=== PATIENT | male | born 1945 ===

== ENCOUNTER 2020-04-13 20:51 | Outpatient (REF) | payer MEDICARE, SELFPAY ==
[2020-04-15 17:33] LABS: SARS-CoV-2 RNA Undetected (Undetected); SARS-CoV-2 Specimen Source Nasal
== END 2020-04-13 21:11 ==
LOC: NCHCN 20:51
PROVIDERS: PCP Nurse Practitioner Family; Visit Provider Nurse Practitioner Family
DX: Z20.828 Contact with and (suspected) exposure to other viral communicable diseases (principal)
CPT/HCPCS: U0003

== ENCOUNTER 2021-12-29 01:07 | Outpatient (CLI) | payer MEDICARE, SELFPAY ==
--- NOTE | 2021-12-29 | DI.RAD_ITS ---
Exam(s) XR LUMBAR SPINE COMPLETE EXAM: XR LUMBAR SPINE COMPLETE CLINICAL HISTORY: LUMBAR SPONDYLOSIS WITH RADICULOPATHY,PRIOR FUSION TECHNIQUE: COMPARISON: No exams were available for comparison FINDINGS: Five views were obtained. There are mild degenerative changes of both hips and both SI joints. Ther e are Zepeda rods in place at L4-5 with a disc prosthesis also present at this level. Otherwise the intervertebral disc spaces appear fairly well maintained. No gross evidence of fracture or dislo cation. Moderate facet and endplate hypertrophic degenerative changes noted. IMPRESSION: Prior surgery as described, no evidence of acute process. RADIATION DOSE DELIVERED: Total DLP
--- NOTE | 2021-12-29 | DI.RAD_ITS ---
Exam(s) XR CERVICAL SPINE COMP 4-5V EXAM: XR CERVICAL SPINE COMP 4-5V CLINICAL HISTORY: C SPONDYLOSIS W/O RADICULOPATHY TECHNIQUE: COMPARISON: No exams were available for comparison FINDINGS: Six views were obtained. There is loss of disc height from C4-5 through C7-T1. There are very promi nent hypertrophic endplate changes throughout the lower cervical spine, particularly anteriorly. The re is minimal anterolisthesis C4 on C5. There is no evidence fracture or dislocation. No perched fa cet identified. Neural foramina are not ideally visualized, however there is some question narrowing of neural forami na on the right from C4-5 through C6-7 and on the left at C5-6 and C6-7. Additional evaluation with MRI could be considered if there is clinical suspicion neural foraminal impingement or central canal spinal stenosis/cord impingement. IMPRESSION: Severe degenerative changes as described above. RADIATION DOSE DELIVERED: Total DLP
== END 2021-12-29 01:27 ==
PROVIDERS: PCP Nurse Practitioner Family; Visit Provider Neuromusculoskeletal Medicine & OMM
DX: M47.26 Other spondylosis with radiculopathy, lumbar region (principal); Z98.1 Arthrodesis status; M47.22 Other spondylosis with radiculopathy, cervical region
CPT/HCPCS: 72050; 72110

== ENCOUNTER 2022-01-20 12:26 | Outpatient (CLI) | payer MEDICARE, SELFPAY ==
[2022-01-20 07:47] LABS: HCT 42.1 % (40.0-50.0); HGB 13.8 g/dL (13.5-17.5); MCH 33.5 pg (27.0-33.0); MCHC 32.8 % (32.0-36.0); MCV 102 fL (80-95); MPV 10.3 fL (8.0-11.0); Platelet Count 240 10^3/uL (130-400); RBC 4.12 10^6/uL (4.36-5.78); RDW 13.1 % (11.8-14.1); RDW-SD 49.3 fL; WBC 6.58 10^3/uL (4.4-10.8)
[2022-01-20 08:41] LABS: ALT 44 U/L (16-63); AST 36 U/L (15-37); Albumin 3.6 g/dL (3.4-5.0); Alkaline Phosphatase 60 U/L (46-116); Anion Gap 6.6 mmol/L (3-11); BUN 21 mg/dL (7-18); Bilirubin, Total 0.4 mg/dL (0.2-1.0); CO2 29.4 mmol/L (21.0-32.0); CREATININE 1.1 mg/dL (0.70-1.30); Chloride 104 mmol/L (98-107); Estimated GFR 69.57 (mL/min/1.73m2); Glucose 86 mg/dL (74-106); Potassium 4.6 mmol/L (3.5-5.1); Sodium 140 mmol/L (136-145); Total Protein 7.2 g/dL (6.4-8.2)
== END 2022-01-20 12:27 | disposition home or self-care (01) ==
LOC: LBO 12:27
PROVIDERS: PCP Family Medicine; Visit Provider Family Medicine
DX: J44.9 Chronic obstructive pulmonary disease, unspecified (principal); K21.9 Gastro-esophageal reflux disease without esophagitis
CPT/HCPCS: 36415; 80053; 85027

== ENCOUNTER 2022-02-23 00:50 | Outpatient (CLI) | payer MEDICARE, SELFPAY ==
--- NOTE | 2022-02-23 09:15 | DI.MRI_ITS ---
Exam(s) MR CERVICAL SPINE WO EXAM: MR CERVICAL SPINE WO CLINICAL HISTORY: C6 RADICULOPATHY, ? CENTRAL STENOSIS, LOSS ROM, +C6 SIGNS RT. TECHNIQUE: Multiplanar multisequence MRI was performed. COMPARISON: No exams were available for comparison FINDINGS: MR examination of the cervical spine was performed according to the usual protocol. There is a moderate mid cervical kyphosis with anterolisthesis of C4 on C5 which is estimated at abou t 4 millimeters. There is loss of disc height from C4-5 through the upper thoracic region. There ar e moderate hypertrophic endplate and facet changes throughout the mid to lower cervical spine. Images obtained through the posterior fossa are unremarkable. No significant findings at C2-3. At C3-4, there is mild bilateral neural foraminal narrowing. There is no disc herniation or central canal spinal stenosis. At C4-5, there is mild bilateral neural foraminal narrowing. There is no central canal spinal stenos is or disc herniation. At C5-6, there is a moderate disc bulge with focal prominence of the disc laterally suggesting a late ral disc herniation. There is narrowing of the left lateral recess and left neural foramen. No righ t neural foraminal narrowing. There is borderline central canal spinal stenosis. At C6-7, there is a moderate disc bulge. There is mild bilateral neural foraminal narrowing. No dis c herniation or central canal spinal stenosis. At C7-T1, there is mild bilateral neural foraminal narrowing with no significant disc herniation or c entral canal spinal stenosis. IMPRESSION: Multilevel degenerative changes as described above. Most prominent findings are at C5-6 where there is probable small lateral disc herniation causing narrowing of the left lateral recess and neural for amen. Multilevel neural foraminal narrowing also noted as described above. No gross spinal cord signal abn ormality or spinal cord lesion seen. DATA REPOSITORY:
--- NOTE | 2022-02-23 09:15 | DI.MRI_ITS ---
Exam(s) MR LUMBAR SPINE WO EXAM: MR LUMBAR SPINE WO CLINICAL HISTORY: SCIATICA, INCREASED WEAKNESS/SENSORY DEFICITS RT. TECHNIQUE: Multiplanar multisequence MRI was performed. COMPARISON: No exams were available for comparison FINDINGS: MR examination of the lumbosacral spine was performed according to the usual protocol. There are Danny rington rods in place at the L4-5 level. There is slight anterolisthesis of L4 on L5. There is mult i level loss of disc height, from L 2 3 through L4-5. There is hypertrophic degenerative change of t he facet joints throughout the lumbar region. The conus medullaris appears intact. No significant findings from T11-T12 through L1-2. No disc herniation, central canal spinal stenosis , or neural foraminal stenosis at these levels. At L2-3, there is a prominent disc bulge with apparent superimposed left broad-based disc herniation. There is narrowing of the left lateral recess. There is moderate central canal stenosis. There is left neural foraminal stenosis. At L3-4, there is moderate central canal spinal stenosis and mild bilateral neural foraminal stenosis . No focal disc herniation. At L4-5, there is moderate central canal spinal stenosis. There is bilateral neural foraminal stenos is. No focal disc herniation seen. At L5-S1, there is no evidence of disc herniation, central canal spinal stenosis, or neural foraminal stenosis.. IMPRESSION: Multilevel central canal spinal stenosis and neural foraminal stenosis as described above. Disc barbara iation at L2-3. Please see above discussion for findings at individual levels. DATA REPOSITORY:
== END 2022-02-23 01:10 ==
PROVIDERS: PCP Family Medicine; Visit Provider Neuromusculoskeletal Medicine & OMM
DX: M48.061 Spinal stenosis, lumbar region without neurogenic claudication (principal); M51.26 Other intervertebral disc displacement, lumbar region; M47.812 Spondylosis without myelopathy or radiculopathy, cervical region
CPT/HCPCS: 72141; 72148

== ENCOUNTER 2022-06-23 02:07 | Outpatient (CLI) | payer MEDICARE, SELFPAY ==
[2022-06-23] MEDS: Albuterol HFA 18 GM 200 PUFF INH IH (09:15)
[2022-06-23] MEDS: Inhaler, Assist Device 1 EACH MC (09:15)
--- NOTE | 2022-06-24 08:29 | W.PFT ---
Date of service: 06/23/22 Time of Service: 08:02 Pulmonary Function Test Result Indications: Asthma Interpretation Spirometry: There is moderate airflow limitation. No bronchodilator response. There is significant blunting of the inspiratory loop. Lung Volumes: Normal lung volumes Diffusion Capacity: Normal diffusion Airway Pressure: Normal airways resistance. Impression Moderate airflow obstruction with a normal diffusion. This could represent uncontrolled asthma or COPD (chronic bronchitis). Blunting of the inspiratory loop may represent vocal cord dysfunction in the correct clinical context. Clinical Correlation therefore is recommended.
== END 2022-06-23 02:08 | disposition home or self-care (01) ==
LOC: RT 02:08
PROVIDERS: PCP Family Medicine; Visit Provider Student in an Organized Health Care Education/Training Program
DX: R94.2 Abnormal results of pulmonary function studies (principal); J47.9 Bronchiectasis, uncomplicated; R05.3 Chronic cough
CPT/HCPCS: 94060; 94726; 94729

== ENCOUNTER 2022-07-12 01:09 | Outpatient (CLI) | payer MEDICARE, SELFPAY ==
--- NOTE | 2022-07-12 08:15 | DI.CT_ITS ---
Exam(s) CT CHEST WO EXAM: CT CHEST WO CLINICAL HISTORY: f/u 1.1cm nodule from 2019.R91.1. TECHNIQUE: Multi planar reconstructions were performed. CONTRAST MATERIAL: None COMPARISON: CT CT THORAX W/O CONTRAST from 04/30/[address] THORAX W/O CONTRAST from 01/29/[address] THORAX W/O CONTRAST from 01/29/2019 . from outside institution [facility] FINDINGS: CHEST: LUNGS: There is a E spiculated nodule in the posterior segment of the right upper lobe which measures approximately 1.2 x 0.7 cm. This, however, it does not appear to have increased in size from the Se ptember 2018 CT scan. There are other foci of increased markings in the lung bland which have increased from the prior hallie dy, with some infiltrate now evident in the lateral aspect of the right upper lobe and reticulonodula r findings throughout both lung bland again noted, not associated with pleural effusions. No focal findings in the trachea and mainstem bronchi. There is no obvious bronchiectasis. MEDIASTINUM: There is no obvious new hilar nor mediastinal adenopathy. Visualized thyroid unremarkabl e.No obvious axillary adenopathy CARDIAC: Heart size is normal. There is no pericardial effusion.Caliber of the thoracic aorta is wit hin normal limits. VISUALIZED UPPER ABDOMEN:No adrenal masses. No splenomegaly. OSSEOUS: No lytic osseous lesions. No fractures evident. IMPRESSION: 1. Relatively stable appearance of the PICC plated right upper lobe nodule which measures 12 x 7 mill imeters, not increased in size from the previous outside CT scan of January 2019. 2. Increasing other markings throughout both lung bland including areas of infiltrate, most prominen t in the lateral aspect of the right upper lobe but seen throughout both lung bland. No associated pleural effusions 3. No intrathoracic adenopathy evident. Close follow-up recommended. RADIATION DOSE DELIVERED: 548.11mGy.cm Total DLP DATA REPOSITORY: All CT scans at this facility are submitted to the National Radiology Data Registry (NRDR) Dose Index Registry (DIR) with the [employer] (ACR). RADIATION OPTIMIZATION: All CT scans at this facility use at least one of these dose optimization te chniques: automated exposure control; mA and/or kV adjustment per patient size (includes targeted exa ms where dose is matched to clinical indication); or iterative reconstruction.
--- NOTE | 2022-07-12 15:30 | DI.US_ITS ---
APPROVED REPORT EXAM: Comprehensive 2D, Doppler, and color-flow Echocardiogram Patient Location: Out-Patient [employer] Research Analyst: Bell Qureshi RDCS (AE) Indications: Assess pulmonary pressure, PHTN Other Information Study Quality: Adequate Conclusion Normal left ventricular wall thickness and chamber size. Estimated ejection fraction is 50 to 55%. There are no segmental wall motion abnormalities Normal right ventricular size and systolic function Both atria are normal in size Aortic valve is sclerotic and trileaflet without stenosis or regurgitation Estimated right ventricular systolic pressure is 29 mmHg Mildly dilated ascending aorta measuring 3.63 cm Wall motion Left Ventricle The left ventricle is normal size. Left ventricular systolic function is borderline. There is normal left ventricular wall thickness. There are no segmental wall motion abnormalities There is no ventric ular septal defect visualized. LVEF is 50-55%. Right Ventricle Right ventricle is grossly normal in size. The right ventricular systolic function is normal. The RVS P is 28.8 mmHg. Atria The left atrium size is normal. The right atrium size is normal. The interatrial septum is intact wit h no evidence for an atrial septal defect. Aortic Valve The Aortic valve is sclerotic. Aortic valve is trileaflet. There is no aortic valvular stenosis. No a ortic regurgitation is present. Mitral Valve The mitral valve is normal in structure. No evidence of mitral valve stenosis. Trace mitral regurgita tion. Tricuspid Valve The tricuspid valve is normal in structure. There is no tricuspid valve stenosis. Mild tricuspid reg urgitation. Pulmonic Valve The pulmonary valve is normal in structure. There is no pulmonic valvular stenosis. Trace pulmonic re gurgitation. Great Vessels The aortic root is normal in size. The ascending aorta is mildly dilated. IVC is normal in size and c ollapses >50% with inspiration. Pericardium There is no pericardial effusion. 2D Dimensions IVSD d PLAX 0.95 cm M: 0.6-1.2 LV Vol A2C d MOD 85.2 mL LVPW d PLAX 0.96 cm M: 0.6 - 1.2 LV Vol A4C d MOD 143.4 mL LVID d PLAX 4.57 cm M: 4.2 - 5.8 LA vol/ BSA A2C s A-L 30.3 mL/m2 LVDs 3.35 cm M: 2.5 - 4.0 LA vol/ BSA A4C s A-L 23.2 mL/m2 Ao Root d 3.65 cm M: 3.1 - 3.7 LA Vol/ BSA Biplane s A-L 26.6 mL/m2 RA Area A4C 14.77 cm2 LA Area A4C s MOD 17.02 cm2 RA Vol/ BSA A4C s A-L 20.7 mL/m2 LA Area A2C s MOD 19.51 cm2 Ao Asc Diam d 3.63 cm M: 2.6 - 3.4 LV EF A4C MOD 50.4 % LV EF Teichholz 51.1 % LV EF A2C MOD 50.3 % LVEF (Agosto's) 50.71 % M: 52 - 72 LV EF Biplane MOD 50.7 % LV Volume 85.75 mL M: 62 - 150 SV 57.36 mL LV Volume Index 44.20 mL/m2 M: 34 - 74 SV Index 29.60 mL/m2 LV Vol Biplane MOD 113.1 mL FS 25.90 % M-Mode TAPSE 2.49 cm (M/F) >1.7 LV Diastology MV E' medial 0.075 (>0.07 m/s) E/A Ratio 0.6 LV E/e MED 6.55 (<14) MV E Vmax 0.49 (0.4-1.3 m/s) MV E' lateral 0.084 (>0.1 m/s) MV A Vmax 0.85 (0.4-1.3 m/s) LV E/e LAT 5.80 (<14) MV E/A Ratio 0.58 MV E/E' medial 6.59 MV E/E' lateral 5.82 Aortic Valve LVOT Area 3.76 cm2 AoV Area Vmax 2.34 cm2 LVOT Vmax 1.00 m/s AoV Area/ BSA (Vmax) 1.21 cm2/m2 LVOT Mean Zach. 0.70 m/s ANTHONY Mean Zach. 2.37 cm2 LVOT Peak Grad 4.0 mmHg ANTHONY Mean Zach. Index 1.22 cm2/m2 LVOT Mean Grad 2.2 mmHg LVOT VTI 0.217 m LVOT Diam s 2.15 cm AoV Vmax 1.60 m/s Velocity Ratio 0.63 AoV Mean Zach. 1.10 m/s AoV Peak Grad 10.3 mmHg LVOT SV 81.45 mL AoV Mean Grad 5.5 mmHg AoV VTI 0.321 m AoV Area VTI 2.54 cm2 AoV Area/ BSA (VTI) 1.31 cm/m2 Mitral Valve MV DT 345 (160-240 msec) MV PHT 100 msec MV Area PHT 2.20 cm2 MV VTI 0.341 m MV Area VTI 2.39 (4.0-6.0 cm2) Pulmonary Valve PV Vmax 1.08 (0.5-1.5 m/s) RVOT Peak Gr. 2.13 mmHg PV Peak Grad 4.6 mmHg RVOT Mean Gr. 1.05 mmHg PV Mean Grad 2.3 mmHg RVOT VTI 0.148 m PV VTI 0.201 m RVOT Vmax 0.73 m/s Tricuspid Valve TR Peak Grad 25.8 mmHg TR Vmax 2.54 m/s RA Pressure 3.00 mmHg RVSP (TR) 28.8 mmHg
== END 2022-07-12 01:29 ==
LOC: DI 01:09
PROVIDERS: PCP Family Medicine; Visit Provider Student in an Organized Health Care Education/Training Program
DX: R91.1 Solitary pulmonary nodule (principal); I27.20 Pulmonary hypertension, unspecified
CPT/HCPCS: 71250; 93306

== ENCOUNTER 2023-01-26 02:18 | Outpatient (CLI) | payer MEDICARE, SELFPAY ==
[2023-01-26 12:31] LABS: HGB 13.6 g/dL (13.5-17.5); MCH 33.8 pg (27.0-33.0); MCHC 33.2 % (32.0-36.0); MCV 102 fL (80-95); MPV 10.6 fL (8.0-11.0); Platelet Count 228 10^3/uL (130-400); RBC 4.02 10^6/uL (4.36-5.78); RDW 13.2 % (11.8-14.1); RDW-SD 50.4 fL
[2023-01-26 12:49] LABS: ALT 38 U/L (16-63); AST 28 U/L (15-37); Albumin 3.5 g/dL (3.4-5.0); Alkaline Phosphatase 71 U/L (46-116); Anion Gap 5.6 mmol/L (3-11); BUN 17 mg/dL (7-18); Bilirubin, Total 0.3 mg/dL (0.2-1.0); CO2 29.4 mmol/L (21.0-32.0); Chloride 102 mmol/L (98-107); Estimated GFR 77.52 (mL/min/1.73m2); Glucose 104 mg/dL (74-106); Potassium 4.8 mmol/L (3.5-5.1); Sodium 137 mmol/L (136-145); Total Protein 7.1 g/dL (6.4-8.2)
== END 2023-01-26 02:19 | disposition home or self-care (01) ==
LOC: LBO 02:18
PROVIDERS: PCP Family Medicine; Visit Provider Family Medicine
DX: J44.9 Chronic obstructive pulmonary disease, unspecified (principal); K58.9 Irritable bowel syndrome, unspecified; F41.8 Other specified anxiety disorders
CPT/HCPCS: 36415; 80053; 85027

== ENCOUNTER → 2023-01-26 13:41 | Outpatient (CLI) | payer MEDICARE, SELFPAY ==
--- NOTE | 2023-01-26 13:16 | DI.RAD_ITS ---
Exam(s) XR SHOULDER LT COMPLETE 2+V EXAM: XR SHOULDER LT COMPLETE 2+V CLINICAL HISTORY: LEFT SHOULDER JOINT PAIN-M25.512. TECHNIQUE: 2D digital imaging was performed. Three views. COMPARISON: No exams were available for comparison FINDINGS: BONES: No acute fracture is present. No bony destructive lesion is seen. JOINTS: No dislocation present. Spurring at the AC joint and undersurface of the acromion. Mild spu rring from the glenoid. Mild glenohumeral joint space narrowing. SOFT TISSUE: Normal. IMPRESSION: [id number] degenerative changes of the AC joint and glenohumeral joint. DATA REPOSITORY: RADIATION DOSE DELIVERED:
== END ==
PROVIDERS: PCP Family Medicine; Visit Provider Family Medicine
DX: M25.511 Pain in right shoulder (principal)
CPT/HCPCS: 73030

== ENCOUNTER → 2023-06-01 18:51 | Outpatient (CLI) | payer MEDICARE, SELFPAY ==
--- NOTE | 2023-06-01 | DI.RAD_ITS ---
Exam(s) XR CERVICAL SPINE COMP 4-5V EXAM: XR CERVICAL SPINE COMP 4-5V CLINICAL HISTORY: M54.2 Cervicalgia. TECHNIQUE: 2D digital imaging was performed. COMPARISON: CR XR CERVICAL SPINE COMP 4-5V from 12/29/2021 FINDINGS: Five views. No evidence of acute fracture. The amount of degenerative anterolisthesis of C4 upon C5 is stable as is the bout of disc space narrowing at the C4-5 disc space. Disc spaces above this level are mainta ined. Severe advanced disc space narrowing at C5-6 and C6-7 and C7-T1 levels again noted. Some facet arthropathy is noted but no obvious of set malalignment. No cervical ribs. IMPRESSION: Multilevel advanced findings as described above but with minimal change from December 2021. DATA REPOSITORY: RADIATION DOSE DELIVERED:
== END ==
PROVIDERS: PCP Family Medicine; Visit Provider Physician Assistant Medical
DX: M50.021 Cervical disc disorder at C4-C5 level with myelopathy (principal); M50.122 Cervical disc disorder at C5-C6 level with radiculopathy; M50.123 Cervical disc disorder at C6-C7 level with radiculopathy
CPT/HCPCS: 72050

== ENCOUNTER 2024-01-08 18:24 | Outpatient (REF) | payer MEDICARE, SELFPAY ==
[2024-01-08 14:31] LABS: Abs Immature Grans 0.01 10^3/uL (0.0-0.06); Absolute Basophil Count 0.02 10^3/uL (0.0-0.2); Absolute Eosinophil Count 0.14 10^3/uL (0.0-0.7); Absolute Lymphocyte Count 0.71 10^3/uL (1.2-3.4); Absolute Monocyte Count 0.47 10^3/uL (0.1-0.8); Absolute Neutrophil Count 3.58 10^3/uL (1.2-6.7); Basophils % 0.4 %; Eosinophils % 2.8 %; HCT 39.2 % (40.0-50.0); HGB 13.1 g/dL (13.5-17.5); Immature Grans % 0.2 %; Lymphocytes % 14.4 %; MCH 34.3 pg (27.0-33.0); MCHC 33.4 % (32.0-36.0); MCV 103 fL (80-95); MPV 10.8 fL (8.0-11.0); Monocytes % 9.5 %; Neutrophils % 72.7 %; Platelet Count 233 10^3/uL (130-400); RBC 3.82 10^6/uL (4.36-5.78); RDW 13.4 % (11.8-14.1); RDW-SD 51.5 fL; WBC 4.93 10^3/uL (4.4-10.8)
[2024-01-08 15:32] LABS: ALT 37 U/L (16-63); AST 29 U/L (15-37); Albumin 3.4 g/dL (3.4-5.0); Alkaline Phosphatase 70 U/L (46-116); Anion Gap 6.7 mmol/L (3-11); BUN 28 mg/dL (7-18); Bilirubin, Total 0.34 mg/dL (0.2-1.0); CO2 29.3 mmol/L (21.0-32.0); CREATININE 0.9 mg/dL (0.70-1.30); Calcium 8.8 mg/dL (8.5-10.1); Chloride 103 mmol/L (98-107); Estimated GFR 87.42 (mL/min/1.73m2); Folate 19.8 ng/mL (8.6-20.0); Glucose 87 mg/dL (74-106); Potassium 4.9 mmol/L (3.5-5.1); Sodium 139 mmol/L (136-145); TSH (W/Ref FT4) 2.03 uIU/mL (0.36-3.74); Total Protein 6.3 g/dL (6.4-8.2); Vitamin B12 751 pg/mL (193-986)
--- OUTSIDE RECORDS SUMMARY | 2024-01-08 18:27 | XMS_ITS | Continuity of Care Document ---
Author Organization [facility] Address [address] [place] [address] Care Team Providers Care Express Manager Name Role Phone ANNE RANGEL APRN Primary Care Physician Encounter [facility]_SC FIN NBR [id number] Date(s): 07/12/23 - 07/12/[address] [id number]- Encounter Diagnosis Spondylosis without myelopathy or radiculopathy, cervical region(Final) - Other cervical disc degeneration, unspecified cervical region(Final) - Other abnormalities of gait and mobility(Final) - Unspecified abnormalities of gait and mobility(Final) - Paresthesia of skin(Final) - Spinal stenosis, lumbar region without neurogenic claudication(Final) - Other symptoms and signs involving the musculoskeletal system(Final) - Arthrodesis status(Final) - Discharge Disposition: Home or Self Care Attending Physician: OLIVIA Cain Admitting Physician: OLIVIA Cain Referring Physician: OLIVIA Cain Allergies, Adverse Reactions, Alerts Substance Reaction Severity Status penicillin Moderate Active Assessment and Plan Future Scheduled Tests Radiology* XR Spine Cervical 2 or 3 Views 07/05/23 * XR Spine Lumbosacral 4+ Views 07/05/23 Medications Anoro Ellipta 62.5 mcg-25 mcg/inh inhalation powder 60 EA, 0 Refill(s), INHALE 1 PUFF BY MOUTH DIRECTED ONCE A DAY, 0 Refill(s) Start Date: 07/05/23 Status: Ordered doxazosin 1 mg oral tablet 100 EA, 0 Refill(s), TAKE 1 TABLET BY MOUTH AT BEDTIME FOR 1 WEEK, INCREASE BY 1MG WEEKLY UP TO A MAX OF 8 MG, 0 Refill(s) Start Date: 07/05/23 Status: Ordered montelukast 10 mg oral tablet 90 EA, 0 Refill(s), TAKE ONE TABLET BY MOUTH EVERY EVENING, 0 Refill(s) Start Date: 07/05/23 Status: Ordered Problem List Condition Confirmation Course Effective Dates Status H ealth Status Informant Gait disturbance Confirmed Active Cervical spondylosis Confirmed Active Degeneration of cervical intervertebral disc Confirmed Active S/P lumbar fusion Confirmed Active Balance problem Confirmed Active Proximal leg weakness Confirmed Active Paresthesias Confirmed Active Lumbar spinal stenosis Confirmed Active Procedures Procedure Date Related Diagnosis Body Site Status Bilateral cataract surgery Completed Dislocated shoulder reduction Completed Fusion of lumbar spine Co mpleted Results Radiology Reports * Exam Date Time Procedure Performing Provider Status 07/12/23 1:52 PM MRI Spine Thoracic w /o Contrast DomainUser, Generated; Auth (Verified) Notes: (MRI Spine Thoracic w/o Contrast) Reason For Exam: Proximal right lower extremity weakness, gait disturbance MRI Spine Thoracic w/o Contrast EXAM DESCRIPTION: MRI Spine Thoracic w/o Contrast 07/12/2023 INDICATION: PROXIMAL RIGHT LOWER EXTREMITY WEAKNESS, GAIT DISTURBANCE TECHNIQUE: Multiplanar MRI examination of the thoracic spine utilizing T1, fat-suppressed T2 and fast STIR technique. COMPARISON: None FINDINGS: Lateral thoracic spine alignment is satisfactory. No focal disc protrusion or significant thoracic stenosis. Neural foramina appear without significant encroachment throughout the thoracic region No intrinsic signal abnormality within the thoracic spinal cord to suggest edema or myelomalacia with no evidence of syrinx. No suspicious regional marrow lesions with small Schmorl's nodes at several levels. No vertebral body compression deformity in the thoracic region Tiny T2 hyperintense lesion in the posterior aspect of the right hepatic lobe measuring a few mm, too small to characterize. Paraspinal soft tissues are otherwise unremarkable. IMPRESSION: No focal disc protrusion or significant thoracic stenosis Normal thoracic spinal cord. JOB #: [id number] Final Signed by: Luis Delgado MD Signed (Electronic Signature): 07/12/2023 3:12 pm * Exam Date Time Procedure Performing Provider Status 07/12/23 1:52 PM MRI Spine Cervical w /o Contrast DomainUser, Generated; Auth (Verified) Notes: (MRI Spine Cervical w/o Contrast) Reason For Exam: Cervical spondylosis and degeneration, balance problem and gait disturbance, paresthesias MRI Spine Cervical w/o Contrast EXAM DESCRIPTION: MRI Spine Cervical w/o Contrast 07/12/2023 INDICATION: CERVICAL SPONDYLOSIS AND DEGENERATION, BALANCE PROBLEM AND GAIT DISTURBANCE, PARESTHESIAS TECHNIQUE: Multiplanar MRI examination of the cervical spine utilizing T1, fat-suppressed T2 and fast STIR technique. COMPARISON: None FINDINGS: Reversal of cervical lordosis in the mid-lower cervical region with mild anterolisthesis at C4-5. Loss of intervertebral disc stature and signal intensity in the mid-lower cervical region on sagittal T2-weighted images consistent with desiccation and degeneration. C2-3: No focal disc protrusion, significant spinal stenosis or neural foraminal narrowing. C3-4: Mild broad-based central disc osteophyte complex. No significant stenosis or cord encroachment with AP spinal canal diameter of 9.3 mm. Bilateral uncovertebral spurring and facet hypertrophy resulting in significant bilateral neural foraminal narrowing C4-5: Broad-based central disc osteophyte complex. This encroaches on the ventral aspect of the cervical spinal cord without significant cord deformity. Posterior CSF space is maintained. AP spinal canal diameter is 8.3 mm. Bilateral uncovertebral spurring and facet hypertrophy resulting in bilateral neural foraminal narrowing, right greater than left. Right neural foraminal narrowing appears significant. C5-6: Broad-based central disc osteophyte complex. No cord encroachment or deformity with AP spinal canal diameter of 7.9 mm. Bilateral uncovertebral spurring with bilateral neural foraminal narrowing, left greater than right. Left neural foraminal narrowing appears significant. C6-7: Mild broad-based central disc osteophyte complex. No cord encroachment or deformity with AP spinal canal diameter of 9.6 mm. Left uncovertebral spurring with left neural foraminal narrowing. No significant right neural foraminal narrowing C7-T1: Mild broad-based central disc osteophyte complex. No significant stenosis or cord encroachment with AP spinal canal diameter of 9.9 mm. Bilateral uncovertebral spurring with bilateral neural foraminal narrowing. No intrinsic signal abnormality within the cervical spinal cord to suggest edema or myelomalacia with no evidence of syrinx. Visualized posterior fossa structures are unremarkable No suspicious regional marrow lesions with degenerative endplate changes at several levels. No vertebral body compression deformity in the cervical region Paraspinal soft tissues are unremarkable. IMPRESSION: Multilevel spondylotic changes. Relative spinal stenosis at several levels without significant stenosis or cord compression. Neural foraminal narrowing noted at multiple levels which appears significant at some levels. Please see above discussion for individual level description. JOB #: [id number] Final Signed by: Luis Delgado MD Signed (Electronic Signature): 07/12/2023 3:07 pm * Exam Date Time Procedure Performing Provider Status 07/12/23 1:52 PM MRI Spine Lumbar w/o Contrast DomainUs er, Generated; Auth (Verified) Notes: (MRI Spine Lumbar w/o Contrast) Reason For Exam: s/p lumbar fusion, lumbar spinal stenosis MRI Spine Lumbar w/o Contrast EXAM DESCRIPTION: MRI Spine Lumbar w/o Contrast 07/12/2023 INDICATION: S/P LUMBAR FUSION, LUMBAR SPINAL STENOSIS TECHNIQUE: Multiplanar MRI examination of the lumbar spine utilizing T1, fat-suppressed T2 and fast STIR technique. COMPARISON: None FINDINGS: Status post fusion at L4-5 with bilateral transpedicular screw and plate apparatus with interbody spacer apparatus. Grade 1-2 anterolisthesis at L4-5. Lumbar lordosis is otherwise satisfactory. Mild scoliosis which may be positional. L5-S1: Mild diffuse disc bulge with bilateral facet hypertrophy. No significant spinal stenosis with AP spinal canal diameter of 15 mm. Moderate bilateral neural foraminal narrowing L4-5: Diffuse disc bulge with bilateral facet hypertrophy. Relative spinal stenosis with AP spinal canal diameter of 7.5 mm. Significant bilateral lateral recess stenosis. Moderate bilateral neural foraminal narrowing L3-4: Diffuse disc bulge with bilateral facet and ligamentum flavum hypertrophy. Relative spinal stenosis with AP spinal canal diameter of 7.7 mm. Significant bilateral lateral recess stenosis with moderate left neural foraminal narrowing and mild right neural foraminal narrowing L2-3: Diffuse disc bulge with bilateral facet and ligamentum flavum hypertrophy. Relative spinal stenosis with AP spinal canal diameter of 7.2 mm. Bilateral lateral recess stenosis with moderate-severe bilateral neural foraminal narrowing L1-2: No focal disc protrusion, significant spinal stenosis or neural foraminal narrowing. T12-L1: No focal disc protrusion, significant spinal stenosis or neural foraminal narrowing. The conus is normal in morphology and signal intensity and terminates at the L1 level. No suspicious regional marrow lesions. Small Schmorl's nodes noted at some levels. No vertebral body compression deformity in the lumbar region Paraspinal soft tissues are unremarkable. IMPRESSION: Status post fusion at L4-5 as detailed above. Grade 1-2 anterolisthesis at L4-5. Spondylotic changes at several levels. Relative spinal stenosis, lateral recess stenosis and neural foraminal narrowing noted at several levels. Please see above discussion for individual level description. Normal conus. JOB #: [id number] Final Signed by: Luis Delgado MD Signed (Electronic Signature): 07/12/2023 2:57 pm Social History Social History Type Response Tobacco Never tobacco user T obacco Use:. Sex Patient Care team information Care Team Personnel Name: ANNE RANGEL APRN Position: No Access Member Role: Primary Care Physician Address: Address: [address] [place] [address]
--- OUTSIDE RECORDS SUMMARY | 2024-01-08 18:27 | XMS_ITS | Continuity of Care Document ---
Author Organization [facility] Ambulatory Clinics Address [address] [place] [address] Care Team Providers Care Application Packaging Specialist Name Role Phone ANNE RANGEL APRN Primary Care Physician Encounter [facility] NBR [id number] Date(s): 11/17/23 - 11/17/23 [facility] Ambulatory Clinics [address] [place], [place] [address]R[place] Discharge Disposition: Home Allergies, Adverse Reactions, Alerts Substance Reaction Severity Status penicillin Moderate Active Assessment and Plan Future Appointments Future Scheduled Tests Radiology* XR Spine Cervical [...] Degeneration of cervical intervertebral disc Confirmed Active Adjacent segment disease of lumbar spine with history of fusion procedure Confirmed Active S/P lumbar fusion Confirmed Active Balance problem Confirmed Active Proximal leg weakness Confirmed Active Paresthesias Confirmed Active Short-term memory loss Confirmed Active Lumbar spinal stenosis Confirmed Active Urinary urgency Confirmed Active Procedures Procedure Date Related Diagnosis Body Site Status Bilateral cataract surgery Completed Dislocated shoulder reduction Completed Fusion of lumbar spine Co mpleted Social History Social History Type Response Tobacco Never tobacco user T obacco Use:. Sex Patient Care team information Care Team Personnel Name: ANNE RANGEL APRN Position: No Access Member Role: Primary Care Physician Address: Address: [address] [place] [address] [place] [address]- Care Team Related Persons Name: ANTONIO SPEARS Address: Home [address] [place] [address]
--- OUTSIDE RECORDS SUMMARY | 2024-01-08 18:27 | XMS_ITS | Continuity of Care Document ---
Author Organization [facility] Ambulatory Clinics Address [address] [place] [address] Care Team Providers Care Internal Specialist Name Role Phone ANNE RANGEL APRN Primary Care Physician Encounter [facility] [facility] NBR [id number] Date(s): 07/06/23 - 07/06/23 [facility] Ambulatory Clinics [address] [place] [address]- Discharge Disposition: Home Allergies, Adverse Reactions, Alerts Substance Reaction Severity Status penicillin Moderate Active Assessment and Plan Future Appointments Future Scheduled Tests Radiology* MRI Spine Cervical w/o Contrast 07/12/23 * MRI Spine Lumbar w/o Contrast 07/12/23 * MRI Spine Thoracic w/o Contrast 07/12/23 * XR Spine Cervical 2 or 3 Views [...] Member Role: Primary Care Physician Address: Address: [address] [place] [address] Dr[address]
--- OUTSIDE RECORDS SUMMARY | 2024-01-08 18:27 | XMS_ITS | Continuity of Care Document ---
Author Organization [facility] Ambulatory Clinics Address [address] [place] [address] Care Team Providers Care Viscose Department Worker Name Role Phone ANNE RANGEL APRN Primary Care Physician ( [phone] Encounter [facility] FIN NBR [id number] Date(s): 07/06/23 - 07/06/23 [facility] Ambulatory Clinics [address] [place] [address] [place] Discharge Disposition: Home Allergies, Adverse Reactions, Alerts [...] Member Role: Primary Care Physician Address: Address: [address] [place] [address] Dr. W[address]
--- OUTSIDE RECORDS SUMMARY | 2024-01-08 18:27 | XMS_ITS | Encounter Summary ---
Author Organization [facility] [place] [address] Care Team Providers Care Air Launch Weapons Technician Name Role Phone Unavailable Primary Care Provider Unavailabl e Encounter Details Date Type Department Care Team (Latest Contact Info) Description 12/24/2021 11:05 AM EDT Laboratory Appointment Lab [address] [place] [id number] Prostate cancer screening Social History Tobacco Use Types Packs/Day Years Used Date Smoking Tobacco: Former Cigarettes Q uit: 1970 Smokeless Tobacco: Never Sex and Gender Information Value Date Recorded Sex Assigned at Not on file Gender Identity Not on file Sexual Orientation Not on file documented as of this encounter Plan of Treatment Not on file documented as of this encounter Procedures Procedure Name Priority Date/Time Associated Diagnosis Comments HC PROSTATE SPECIFIC ANTIGEN Routine 12/24/2021 11:14 AM EDT Prostate cancer screening documented in this encounter Results * PSA (Ultrasensitive), total and free (12/24/2021 11:14 AM EDT) Prostate Specific Antigen (Ultrasensitive) 0.92 0.00 - 4.00 ng/mL [facility] Comment: PLEASE NOTE: The above reference interval is intended for healthy males with an intact prostate. Values within this reference interval may indicate recurrence in men who have undergone radical prostatectomy. This result was generated using a Kristine Geo immunoassay. ??Results obtained from other methods or manufacturers cannot be used interchangeably with this method. Prostate Specific Antigen, Free 0.5 ng/mL [facility] Comment: This result was generated using a Kristine Geo immunoassay. ??Results obtained from other methods or manufacturers cannot be used interchangeably with this method. PSA % Free Not Calculated % [facility] Comment: The percent free PSA was not calculated for this sample as the total PSA value was not in the range of 4-10 ng/mL. ??The utility of the percent free PSA in the setting of total PSA values below 4 or above 10 ng/mL has not been evaluated. Probability of finding FABRIC CUTTER on needle biopsy by age in years: % fPSA ? 50-59yrs ? 60-69yrs ? >=70yrs <=10 ? 49.2 ? 57.5 ? 64.5 11-18 ?26.9 ? 33.9 ? 40.8 19-25 ?18.2 ? 23.9 ? 29.7 >25 ? 9.1 ? 12.2 ? 15.8 This result was generated using a Kristine Geo immunoassay. ??Results obtained from other methods or manufacturers cannot be used interchangeably with this method. Blood 12/24/2021 11:1 4 AM EDT 12/24/2021 11:24 AM EDT Narrative Resulting Agency Comment Spec In Lab Becky Faustin APRN CHEMISTRY ORDER WINSOME ROXANA [facility] [place] [address] documented in this encounter Visit Diagnoses Diagnosis Prostate cancer screening Special screening for malignant neoplasm of prostate documented in this encounter
--- OUTSIDE RECORDS SUMMARY | 2024-01-08 18:27 | XMS_ITS | Encounter Summary ---
Author Organization [facility] [address] Care Team Providers Care Supervisor Cook House Name Role Phone Unavailable Primary Care Provider Unavailabl e Encounter Details Date Type Department Care Team (Latest Contact Info) Description 03/01/2022 8:20 AM EDT TH Visit (TeleHealth) [place] [address] Becky Walker APRN [facility] [place] [address] PATIENT NOT SEEN Social History Tobacco Use Types Packs/Day Years Used Date Smoking Tobacco: Former Cigarettes Q uit: 1970 Smokeless Tobacco: Never Sex and Gender Information Value Date Recorded Sex Assigned at Not on file Gender Identity Not on file Sexual Orientation Not on file documented as of this encounter Progress Notes * Becky Walker APRN - 03/01/2022 8:20 AM EDT [facility] SECTION OF UROLOGY OUT PATIENT FOLLOW UP VISIT History of Present Illness: Dedrick Hairston is a 77 y.o. year old man, initially referred by Corazon Narayan APRN, who presents for follow up of LUTs/OAB and prostate cancer screening. Dedrick Hairston consented to conduct this clinical encounter by telephone. The patient acknowledges that the insurance may be billed for the care provided, similar to an in person appointment. The patient is currently in Prior to beginning the visit, I confirmed the patients name and date of . I obtained the patient's consent to receiving health care services at [facility] through telemedicine. We discussed the opportunities and limitations of delivering health care services through telemedicine. I told the patient that the telemedicine service is being delivered over a secure connection, except in the event of emergency conditions when such requirements may be waived. [facility] available for patient's review in [facility]'s patient portal, [facility]. He did not arrive to his video visit and I could not reach him by phone x 2. We will reschedule. Previous history: He has had these symptoms for the past few years and tried tamsulosin/terazosin with terrible side effects (worsened his symptoms). When I saw him in 12/2021,he was voiding every 2 hours, was leaking with urge and was drinking 2 cups of black tea (16 oz), kombucha and green tea (3 quarts per day), and no water. We discussed options and he opted for behavioral therapies. He had tried saw palmetto without benefit. 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 Smoked 50-60 years ago, smoked for a few years, socially only.2 drinks per day before dinner. 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 documented in this encounter Plan of Treatment Not on file documented as of this encounter Visit Diagnoses Diagnosis DH PATIENT NOT SEEN documented in this encounter
--- OUTSIDE RECORDS SUMMARY | 2024-01-08 18:27 | XMS_ITS | Encounter Summary ---
Author Organization [facility] [place] [address] Care Team Providers Care Mortgage Branch Manager Name Role Phone Unavailable Primary Care Provider Unavailabl e Reason for Referral * Consultation (Routine) - Denied Specialty Diagnoses / Procedures Referred By Contac t Referred To Contact [facility] Diagnoses Other cervical disc degeneration, unspecified cervical region [facility]ail [facility] PA [address] [place] [address] [facility] [place] [address] Referral ID Status Reason Start Date Expiration Date V isits Requested Visits Authorized [id number] Denied Consult, Test & Treat PCP Updated and/or Approved 06/07/2023 06/06/2024 1 0 Encounter Details Date Type Department Care Team (Latest Contact Info) Description 06/07/2023 Transcribe Orders eD Incoming Referrals [phone] [facility]ail [facility] PA [address] [place], [place] [address] Other cervical disc degeneration, unspecified cervical region Social History Tobacco Use Types Packs/Day Years Used Date Smoking Tobacco: Former Cigarettes Q uit: 1970 Smokeless Tobacco: Never Sex and Gender Information Value Date Recorded Sex Assigned at Not on file Gender Identity Not on file Sexual Orientation Not on file documented as of this encounter Plan of Treatment Scheduled Referrals Name Type Priority Associated Diagnoses Orde r Schedule Referral to Spine Center Outpatient Referral Routine Other cervical disc degeneration, unspecified cervical region Ordered: 06/07/2023 documented as of this encounter Visit Diagnoses Diagnosis Other cervical disc degeneration, unspecified cervical region documented in this encounter
--- OUTSIDE RECORDS SUMMARY | 2024-01-08 18:27 | XMS_ITS | Clinical Summary ---
Author Organization [facility] Address [facility] [place] [address] Care Team Providers Care Veterinary Manager Name Role Phone Unavailable Primary Care Provider Unavailabl e Allergies Active Allergy Reactions Criticality Noted Date Comments Penicillins Anaphylaxis,Hives High 12/24/2021 Secobarbital Sodium High 12/24/2021 Medications Medication Sig Dispensed Refills Start Date End Date Status montelukast (Singulair) 10 mg Tablet 12/11/2021 Active Symbicort 160-4.5 mcg/actuation HFA Aerosol Inhaler Inhale 2 puffs into the lungs 2 times daily. 11/11/2021 Active albuteroL 90 mcg/actuation HFA Aerosol Inhaler INHALE TWO PUFFS BY MOUTH EVERY 4 TO 6 HOURS NEEDED FOR FOR SHORTNESS OF BREATH 09/01/2021 Active Active Problems Problem Noted Date Diagnosed Date Prostate cancer screening 12/24/2021 OAB (overactive bladder) 12/24/2021 Social History Tobacco Use Types Packs/Day Years Used Date Smoking Tobacco: Former Cigarettes Q uit: 1970 Smokeless Tobacco: Never Sex and Gender Information Value Date Recorded Sex Assigned at Not on file Gender Identity Not on file Sexual Orientation Not on file Last Filed Vital Signs Vital Sign Reading Time Taken Comments Blood Pressure 138/90 12/24/2021 10:25 AM EDT Pulse 80 12/24/2021 10:25 AM EDT Temperature - - Respiratory Rate - - Oxygen Saturation - - Inhaled Oxygen Concentration - - Weight - - Height - - Body Mass Index - - Plan of Treatment Health Maintenance Due Date Last Done Comments Hepatitis C Screening 1963 Tdap adult 02/23/1964 Tetanus vaccine 02/23/1964 Zoster vaccine (1 of 2) 1995 Advance Directive 02/23/2000 Pneumoccocal Vaccine: 65+ (1 of 1 - PCV) 2010 Covid-19 Vaccine (2022-24 season) 2023 Influenza (Flu) vaccine (1 o f 1 - Influenza standard series) 01/14/2024
--- OUTSIDE RECORDS SUMMARY | 2024-01-08 18:27 | XMS_ITS | Continuity of Care Document ---
Author Organization [facility] Address [address] [place] [address] Care Team Providers Care Motorcoach Driver Name Role Phone ANNE RANGEL APRN Primary Care Physician Encounter [facility] FIN NBR [id number] Date(s): 08/31/23 - 08/31/[address] [address]- [place] Discharge Disposition: Home or Self Care Attending Physician: Eladio Mckeon DO ([place]) Admitting Physician: Eladio Mckeon DO ([place]) Allergies, Adverse Reactions, Alerts Substance Reaction Severity Status penicillin Moderate Active Assessment and Plan Future Appointments Future Scheduled Tests Radiology* MRI Brain w/o Contrast 08/31/23 * XR Spine Cervical 2 or 3 [...] Exam Date Time Procedure Performing Provider Status 08/31/23 3:16 PM XR Spine Lumbosacral 4+ Views Brea Arshad; Maribel (Verified) Notes: (XR Spine Lumbosacral 4+ Views) Reason For Exam: r/o lumbar instability XR Spine Lumbosacral 4+ Views EXAM DESCRIPTION: XR Spine Lumbosacral 4+ Views 08/31/2023 INDICATION: R/O LUMBAR INSTABILITY TECHNIQUE: AP and lateral views of the lumbar spine including lateral views with voluntary flexion/extension, 4 views. COMPARISON: None IMPRESSION: Status post fusion at L4-5 with bilateral transpedicular screw and plate apparatus with interbody spacer apparatus. Hardware appears in satisfactory position No acute fracture. Grade 1-2 anterolisthesis at L4-5. Mild retrolisthesis at L1-2. Mild levoscoliosis. Spondylotic changes in the mid-upper lumbar region with intervertebral disc space narrowing and mild endplate osteophyte formation SI joints appear symmetric Views with voluntary flexion/extension demonstrate no evidence of significant instability. JOB #: [id number] Final Signed by: Luis Delgado MD Signed (Electronic Signature): 08/31/2023 3:24 pm Social History Social History Type Response Tobacco Never tobacco user T obacco Use:. Sex Patient Care team information Care Team Personnel Name: ANNE RANGEL APRN Position: No Access Member Role: Primary Care Physician Address: Address: [address] [place] [address] Care Team Related Persons Name: ANTONIO SPEARS Address: Home [address]
--- OUTSIDE RECORDS SUMMARY | 2024-01-08 18:27 | XMS_ITS | Continuity of Care Document ---
Author Organization [facility] Ambulatory Clinics Address [address] [place] [address] Care Team Providers Care Nuclear Plant Technical Advisor Name Role Phone ANNE RANGEL APRN Primary Care Physician Encounter [facility] NBR [id number] Date(s): 08/31/23 - 08/31/23 [facility] Ambulatory Clinics [address] [place], [place] [address] Encounter Diagnosis Degeneration of cervical intervertebral disc(Discharge Diagnosis) - 08/31/23 Adjacent segment disease of lumbar spine with history of fusion procedure (Discharge Diagnosis) - 08/31/23 Short-term memory loss(Discharge Diagnosis) - 08/31/23 Other intervertebral disc degeneration, lumbar region(Discharge Diagnosis) - 08/31/23 Status post lumbar spinal fusion(Discharge Diagnosis) - 08/31/23 Normal pressure hydrocephalus(Discharge Diagnosis) - 08/31/23 Balance problem(Discharge Diagnosis) - 08/31/23 Gait disturbance(Discharge Diagnosis) - 08/31/23 Urinary urgency(Discharge Diagnosis) - 08/31/23 Cervical spondylosis(Discharge Diagnosis) - 08/31/23 Discharge Disposition: Home or Self Care Attending Physician: Eladio Mckeon DO ([place]) Allergies, Adverse Reactions, Alerts Substance Reaction Severity Status penicillin Moderate Active Assessment and Plan Extracted from: Title:Neurosurgery office Visit Note Author:Eladio Mckeon DO ([place]) Date:08/31/23 1.??Balance problem??R26.89 ??78-year-old male with??history of??L4-5 posterior instrumented fusion??and adjacent level disease.?? His chief complaints are??low back pain,??gait imbalance,??urinary urgency, and short-term memory loss.?? Pain is axial and there is no radicular component.?? His cervical??MRI also shows??cervical??spondylosis with??reversal of normal cervical lordosis,??spondylolisthesis at C4-5,??and cervical stenosis from C4-C6.?? He is not clearly myelopathic however,??with a dearth of??upper extremity??symptoms.?? At this time, I recommended??lumbar x-ray with flexion-extension views, an MRI of the brain??to rule out normal pressure hydrocephalus??and??follow-up with neurology.?? I will call him to discuss next steps after MRI is completed. ??Patient is agreeable. 2.??Gait disturbance??R26.9 3.??Urinary urgency??R39.15 4.??Cervical spondylosis??M47.812 5.??Degeneration of cervical intervertebral disc??M50.30 6.??Short-term memory loss??R41.3 7.??Adjacent segment disease of lumbar spine with history of fusion procedure??M51.36 Orders: MRI Brain w/o Contrast, 08/31/23, Routine, Reason: NPH symptoms, No, No, Transport Mode: Ambulatory, Normal pressure hydrocephalus, ABN Status: Not Required Future Appointments Future Scheduled Tests Radiology* MRI [...] Completed Fusion of lumbar spine Co mpleted Vital Signs Most recent to oldest [Reference Range]: 1 Temperature Temporal Artery [36-38 Deg C ] 35.9 Deg C *LOW* (08/31/23 2:34 PM) Peripheral Pulse Rate [60-100 bpm] 69 bp m (08/31/23 2:34 PM) Respiratory Rate [12-24 br/min] 16 br/mi n (08/31/23 2:34 PM) Blood Pressure [90-140/60-90 mmHg] 155/8 8mmHg *HI* (08/31/23 2:34 PM) Mean Arterial Pressure, Cuff [65-140 mmH g] 110 mmHg (08/31/23 2:34 PM) Weight 74.9 kg (08/31/23 2:34 PM) Weight Measured (lbs) 165.126 lb (08/31/23 2:34 PM) Weight Dosing 74.900 kg (08/31/23 2:34 PM) Social History Social History Type Response Tobacco Never tobacco user T obacco Use:. Sex Physician Outpatient Note * Eladio Mckeon DO (Yoli): PERFORM Event Display: Office Clinic Note Physician Authored Date: [id number] FISH[place] :1945 Age:78 years Sex:Male Visit Date:08/31/2023 Primary Care Physician: ANNE RANGEL APRN Chief Complaint new patient History of Present Illness This is a 78-year-old male who was last seen on??07/05/2023??for neck and low back pain.?Today hereports that his low back pain is??significantly??worse than his??neck pain.?He denies??radicular component to??either pain.?? Regenerex treatment has helped this low back pain for??approximately 6 months. ??He describes??shuffling gait??that began around 2 years ago,??concomitant with??decline in short-term memory.?? 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 However, he is??noted 30 pounds of weight loss over the past??15 to 16 years.?? He does eat and sleep well.?? He drinks about 1 vodka a day.?? Patient has??appointment with neurology in December. Review of Systems As per HPI Physical Exam Vitals & Measurements T:??35.9?C ??(Temporal Artery)?? HR:??69??(Peripheral)?? RR:??16?? BP:??155/88?? SpO2:??98%?? WT:??74.9??kg?? NAD?? Awake, alert Face symmetric Speech fluent and logical Motor 5 out of 5 bilateral upper and lower extremities all muscle groups No drift No dysmetria on??[id number] No Kady's or clonus Wide base??gait,??nonshuffling Unable to tandem Assessment/Plan 1.??Balance problem??R26.89 ??78-year-old male with??history of??L4-5 posterior instrumented fusion??and adjacent level disease.?? His chief complaints are??low back pain,??gait imbalance,??urinary urgency, and short-term memory loss.?? Pain is axial and there is no radicular component.?? His cervical??MRI also shows??cervical ??spondylosis with??reversal of normal cervical lordosis,??spondylolisthesis at C4-5,??and cervicalstenosis from C4-C6.?? He is not clearly myelopathic however,??with a dearth of??upper extremity??symptoms.?? At this time, I recommended??lumbar x-ray with flexion-extension views, an MRI of the brain??to rule out normal pressure hydrocephalus??and??follow-up with neurology.?? I will call him to discuss next steps after MRI is completed. ??Patient is agreeable. 2.??Gait disturbance??R26.9 3.??Urinary urgency??R39.15 4.??Cervical spondylosis??M47.812 5.??Degeneration of cervical intervertebral disc??M50.30 6.??Short-term memory loss??R41.3 7.??Adjacent segment disease of lumbar spine with history of fusion procedure??M51.36 Orders: MRI Brain w/o Contrast, 08/31/23, Routine, Reason: NPH symptoms, No, No, Transport Mode: Ambulatory, Normal pressure hydrocephalus, ABN Status: Not Required Future Orders MRI Brain w/o Contrast, 08/31/23, Routine, Reason: NPH symptoms, No, No, Transport Mode: Ambulatory, Normal pressure hydrocephalus, ABN Status: Not Required Problem List/Past Medical History Ongoing Adjacent segment disease of lumbar spine with history of fusion procedure Balance problem Cervical spondylosis Degeneration of cervical intervertebral disc Gait disturbance Lumbar spinal stenosis Paresthesias Proximal leg weakness S/P lumbar fusion Short-term memory loss Urinary urgency Historical No qualifying data Procedure/Surgical History ???Bilateral cataract surgery???Dislocated shoulder reduction???Fusion of lumbar spine Medications Anoro Ellipta 62.5 mcg-25 mcg/inh inhalation powder doxazosin 1 mg oral tablet montelukast 10 mg oral tablet Allergies penicillin Social History Alcohol Current, Liquor, Daily Electronic Cigarette/Vaping Electronic Cigarette Use: Never. Substance Use Current, Marijuana, 3-5 times per week Tobacco Never tobacco user Tobacco Use:. Family History Cancer: Mother. Diagnostic Results Diagnostic Study Interpretation: MRI cervical spine??without contrast??07/12/2023: Straightening of normal cervical lordosis. ??Thereis spondylolisthesis??at C4-5.?? Moderate to severe stenosis at C4-5??and C5-6. ??There is also left foraminal stenosis at C5-6.?? There is shallow disc bulges at C6-7 and C7-T1 without??significant??impingement of the??spinal cord or nerve roots. ?? MRI lumbar spine without contrast 07/04/2023:??Postoperative changes related to L4-5 instrumentedfusion.?? There is spondylolisthesis at this level??with persistent??canal stenosis.?? There is adjacent level disease at L3-4??and L2- 3??with significant canal and foraminal stenosis at both levels. Attending Attestation Spent 45 minutes with patient in obtaining appropriate history and exam, counseling the patient, ordering MRI.?Time was not spent in performing separately reimbursable service. Electronically Signed on 08/31/23 04:11 PM Eladio Mckeon DO ([place]) Patient Care team information Care Team Personnel Name: ANNE RANGEL APRN Position: No Access Member Role: Primary Care Physician Address: Address: [address] [place] [address] [place] [address]- Care Team Related Persons Name: ANTONIO SPEARS Address: Home [address] [place] [address]
--- OUTSIDE RECORDS SUMMARY | 2024-01-08 18:27 | XMS_ITS | Continuity of Care Document ---
Author Organization [facility] Ambulatory [facility] Address [address] [place] [address] Care Team Providers Care Food Checker Name Role Phone ANNE RANGEL APRN Primary Care Physician Encounter [facility] [id number] Date(s): 07/06/23 - 07/06/23 [facility] [address] [place] [address]- Discharge Disposition: Home Allergies, Adverse Reactions, Alerts [...] Member Role: Primary Care Physician Address: Address: [address] [place] [address] Dr. WINTERS [address]
--- OUTSIDE RECORDS SUMMARY | 2024-01-08 18:27 | XMS_ITS | Continuity of Care Document ---
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 Encounter Diagnosis Cervical spondylosis(Discharge Diagnosis) - 07/05/23 Degeneration of cervical intervertebral disc(Discharge Diagnosis) - 07/05/23 Balance problem(Discharge Diagnosis) - 07/05/23 Gait disturbance(Discharge Diagnosis) - 07/05/23 Paresthesias(Discharge Diagnosis) - 07/05/23 Proximal leg weakness(Discharge Diagnosis) - 07/05/23 S/P lumbar fusion(Discharge Diagnosis) - 07/05/23 Lumbar spinal stenosis(Discharge Diagnosis) - 07/05/23 Discharge Disposition: Home or Self Care Attending Physician: ANNE RANGEL APRN Referring Physician: ANNE RANGEL APRN Allergies, Adverse Reactions, Alerts Substance Reaction Severity Status penicillin Moderate Active Assessment and Plan Extracted from: Title:Office Visit Note Author:Becki Milton APRN- JOEY Date:07/05/23 1.??Cervical spondylosis??M4 7.812 The patient has been struggling with chronic neck pain??for years but??more recently this increase significantly.?? While the pain in his neck has improved some but is still present and he now has significantly decreased range of motion particular with rotation to the right. ??He also has frequent??tingling of??the fingers on both of his hands.?? The patient also feels that his balance and gait are getting much worse which is concerning for cervical spinal stenosis.?He has extensive conservative treatment including trial of multiple medications, physical therapy and chiropractic treatments regularly with??again some improvement in his??pain but persistence in??the rest of his symptoms. ??The patient has known significant cervical disc degeneration and spondylosis and his MRI of the cervical spine from 2021 also shows multilevel foraminal narrowing and??thecal sac indentation but no significant central stenosis. ??I am concerned that this may have progressed.?? We will obtain an MRI of the cervical spine without contrast and I am also recommending obtaining flexion-extension cervical spine x-rays to ensure there is no abnormal movement of the cervical spine. ??The patient is in agreement. Ordered: MRI Spine Cervical w/o Contrast, 07/05/23, Routine, Reason: Cervical spondylosis and degeneration, balance problem and gait disturbance, paresthesias, No, No, Transport Mode: Ambulatory, Cervical spondylosis Degeneration of cervical intervertebral disc Balance problem Gait dist... XR Spine Cervical 2 or 3 Views, 07/05/23, Routine, Reason: cervical spondylosis, FLEX/EXT ONLY, Transport Mode: Ambulatory, Cervical spondylosis Degeneration of cervical intervertebral disc, ABN Status: Not Required ?? 2.??Degeneration of cervical intervertebral disc??M50.30 Ordered: MRI Spine Cervical w/o Contrast, 07/05/23, Routine, Reason: Cervical spondylosis and degeneration, balance problem and gait disturbance, paresthesias, No, No, Transport Mode: Ambulatory, Cervical spondylosis Degeneration of cervical intervertebral disc Balance problem Gait dist... XR Spine Cervical 2 or 3 Views, 07/05/23, Routine, Reason: cervical spondylosis, FLEX/EXT ONLY, Transport Mode: Ambulatory, Cervical spondylosis Degeneration of cervical intervertebral disc, ABN Status: Not Required ?? 3.??Balance problem??R26.89 Ordered: MRI Spine Cervical w/o Contrast, 07/05/23, Routine, Reason: Cervical spondylosis and degeneration, balance problem and gait disturbance, paresthesias, No, No, Transport Mode: Ambulatory, Cervical spondylosis Degeneration of cervical intervertebral disc Balance problem Gait dist... MRI Spine Lumbar w/o Contrast, 07/05/23, Routine, Reason: s/p lumbar fusion, lumbar spinal stenosis, No, No, Transport Mode: Ambulatory, Balance problem Gait disturbance Paresthesias S/P lumbar fusion Lumbar spinal stenosis, ABN Status: Not Required MRI Spine Thoracic w/o Contrast, 07/05/23, Routine, Reason: Proximal right lower extremity weakness, gait disturbance, No, No, Transport Mode: Ambulatory, Proximal leg weakness Gait disturbance Balance problem, ABN Status: Not Required ?? 4.??Gait disturbance??R26.9 Patient's balance has progressively been getting worse over the last year or 2??but he also feels that he has a shuffling gait.?? On his physical examination today he does have an abnormal gait that is wide-based and seems to be quite stiff in his right leg.?? In addition to the gait and balance changes,??he also is having difficulty with his speech where he has trouble getting his words out at times which was noticeable during his visit today. ??He also feels that his memory is worsening.?? In addition to??evaluating??his spine I am recommending referral to neurology as a spine problem could not explain the speech problem or memory issues. ??He is in agreement. Ordered: MRI Spine Cervical w/o Contrast, 07/05/23, Routine, Reason: Cervical spondylosis and degeneration, balance problem and gait disturbance, paresthesias, No, No, Transport Mode: Ambulatory, Cervical spondylosis Degeneration of cervical intervertebral disc Balance problem Gait dist... MRI Spine Lumbar w/o Contrast, 07/05/23, Routine, Reason: s/p lumbar fusion, lumbar spinal stenosis, No, No, Transport Mode: Ambulatory, Balance problem Gait disturbance Paresthesias S/P lumbar fusion Lumbar spinal stenosis, ABN Status: Not Required MRI Spine Thoracic w/o Contrast, 07/05/23, Routine, Reason: Proximal right lower extremity weakness, gait disturbance, No, No, Transport Mode: Ambulatory, Proximal leg weakness Gait disturbance Balance problem, ABN Status: Not Required ?? 5.??Paresthesias??R20.2 Ordered: MRI Spine Lumbar w/o Contrast, 07/05/23, Routine, Reason: s/p lumbar fusion, lumbar spinal stenosis, No, No, Transport Mode: Ambulatory, Balance problem Gait disturbance Paresthesias S/P lumbar fusion Lumbar spinal stenosis, ABN Status: Not Required ?? 6.??Proximal leg weakness??R29.898 The patient reports that he has trouble with lifting his right leg. ??He feels weak??and has trouble with??stairs.?? He has mild weakness of the left hamstring as well.?? Given his gait changes, balance issues as well as this proximal weakness as well as hamstring weakness I am recommending MRI of the thoracic spine as well. Ordered: MRI Spine Thoracic w/o Contrast, 07/05/23, Routine, Reason: Proximal right lower extremity weakness, gait disturbance, No, No, Transport Mode: Ambulatory, Proximal leg weakness Gait disturbance Balance problem, ABN Status: Not Required ?? 7.??S/P lumbar fusion??Z98.1 The patient struggles with chronic low back pain.?? He had a lumbar fusion at L4-5 when he lived in [place] in 2016 which helped for a couple of years but it is progressively worsened.?? He has done extensive conservative treatment including trial of multiple medications including topical medications, therapy, chiropractic treatments and??Regentex platelet injections with??no lasting relief. ??His imaging from 2021 does reveal adjacent segment degeneration at the L3-4 level as well as stenosis at the L3-4 and L2-3 levels.?? Given that it has been a couple of years since he has had any lumbar spine imaging I am recommending obtaining MRI of the lumbar spine with contrast as well as AP and lateral and flexion-extension lumbar spine x-rays. Ordered: MRI Spine Lumbar w/o Contrast, 07/05/23, Routine, Reason: s/p lumbar fusion, lumbar spinal stenosis, No, No, Transport Mode: Ambulatory, Balance problem Gait disturbance Paresthesias S/P lumbar fusion Lumbar spinal stenosis, ABN Status: Not Required XR Spine Lumbosacral 4+ Views, 07/05/23, Routine, Reason: s/p lumbar fusion, AP/Lat and FLEX/EXT, Transport Mode: Ambulatory, S/P lumbar fusion Lumbar spinal stenosis, ABN Status: Not Required ?? 8.??Lumbar spinal stenosis??M48.061 Ordered: MRI Spine Lumbar w/o Contrast, 07/05/23, Routine, Reason: s/p lumbar fusion, lumbar spinal stenosis, No, No, Transport Mode: Ambulatory, Balance problem Gait disturbance Paresthesias S/P lumbar fusion Lumbar spinal stenosis, ABN Status: Not Required XR Spine Lumbosacral 4+ Views, 07/05/23, Routine, Reason: s/p lumbar fusion, AP/Lat and FLEX/EXT, Transport Mode: Ambulatory, S/P lumbar fusion Lumbar spinal stenosis, ABN Status: Not Required ?? Plan: MRI cervical, thoracic and lumbar spines without contrast. AP and lateral and flexion-extension lumbar spine x-rays. Flexion and extension cervical spine x-rays. Referral to neurology. ? Future Scheduled Tests Radiology* MRI Spine Cervical w/o Contrast 07/05/23 * MRI Spine Lumbar w/o Contrast 07/05/23 * MRI Spine Thoracic w/o Contrast 07/05/23 * XR Spine Cervical 2 or 3 [...] recent to oldest [Reference Range]: 1 Temperature Oral [35.8-37.3 Deg C] 36.7 Deg C (07/05/23 2:13 PM) Peripheral Pulse Rate [60-100 bpm] 82 bp m (07/05/23 2:13 PM) Respiratory Rate [12-24 br/min] 20 br/mi n (07/05/23 2:13 PM) Blood Pressure [90-140/60-90 mmHg] 118/8 2mmHg (07/05/23 2:13 PM) Mean Arterial Pressure, Cuff [65-140 mmH g] 94 mmHg (07/05/23 2:13 PM) Weight 73.57 kg (07/05/23 2:13 PM) Weight Measured (lbs) 162.194 lb (07/05/23 2:13 PM) Weight Dosing 73.570 kg (07/05/23 2:13 PM) [place] Body Weight Calculated 77.6 kg (07/05/23 2:13 PM) Height 182.88 cm (07/05/23 2:13 PM) Height/Length Measured (inches) 72 inch (07/05/23 2:13 PM) BSA Measured 1.93 m2 (07/05/23 2:13 PM) Body Mass Index 22 kg/m2 (07/05/23 2:13 PM) Social History Social History Type Response Tobacco Never tobacco user T obacco Use:. Sex Physician Outpatient Note * Becki Milton APRN-JOEY: PERFORM Event Display: Office Clinic Note Physician Authored Date: [id number] RICKY FISHER :1945 Age:78 years Sex:Male Visit Date:07/05/2023 Primary Care Physician: ANNE RANGEL APRN Chief Complaint cervical and lower back pain History of Present Illness The patient presents for evaluation of his neck and low back pain. ??The patient reports that??nearly 40 years ago he had a C3 transverse??process fracture but that healed??and did not require any surgical correction.?? He has struggled with chronic neck pain but more recently over the last month or so??this increased. ??He denies any known injury.?? He states that his neck pain has subsided somebut is still present but he continues to have significantly decreased range of motion. ??He states that the range of motion is decreased bilaterally but more pronounced with turning his head to the right.?? He is also found that his gait is more shuffling and his balance is getting worse over the past few years. ??He started noticing the shuffling in 2021. ??He has fallen due to balance problems.?? He also has tingling affecting the fingertips of all of his fingers bilaterally.?? He states thatthis has improved slightly after he started using a CPAP back in the fall but is still present.?? 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 It has affected his activity and he can no longer ski due to his balance.?? He also feels that he has become weak throughout his whole body including the upper and lower extremities.?? The patient denies any swallowing issues or dizziness. ??He denies any new headaches.?? He does report that his memory seems to be getting much worse.?? The patient reports that he drinks 2??drinks of vodka daily and he has done this for quite some time. ??Prior to starting drinking the vodka he used to drink about a half of wine daily with his previous who is . ??He is concerned that some of his issues may be due to the alcohol use. The patient also reports that he struggles with chronic low back pain. ??He states that he had a L4-5 fusion in 2016 in [place] and that did help for a couple of years and the pain started comingback. ??The pain is not severe it is still quite bothersome and limiting. ??He was having some painaffecting his right lateral thigh but this has improved.?? He is not experiencing any paresthesias of lower extremities.?? He states that he received 2 Regentex platelet injections last year for his low back pain and that did help for??a few months but??his pain is back at his baseline.?? His low back does not bother much while he was sitting but when he goes to get up at times the pain can be severe and??dropped him to his knees.?? He sees a physical therapist for manual therapy monthly as well as a chiropractor monthly and he finds that the ultrasound used by the chiropractor is very helpful. ??He applies topical castor oil??as well as THC??to his low back and that is helpful as well. ??He also utilizes oral THC, acetaminophen as needed which is somewhat helpful. ?? Review of Systems Relevant ROS discussed in HPI Physical Exam Vitals & Measurements T:??36.7?C ??(Oral)?? HR:??82??(Peripheral)?? RR:??20?? BP:??118/82?? SpO2:??95%?? HT:??182.88??cm?? WT:??73.57??kg?? BMI:??22?? BSA:??1.93?? GENERAL:?General Appearance:?pleasant, age appropriate in no apparent distress.?? MUSCULOSKELETAL:?Musculoskeletal:??Cervical spine ROM limited with bilateral rotation but much more pronounced with rotation to the right. ??No tenderness??over cervical spine. No??paraspinal muscle tenderness. NEUROLOGICAL:?Neurological:?Negative Lhermitte's.?Motor:?Strength 5/5 with bilateral deltoid abduction, bicep flexion, triceps flexion, wrist extension, hand abduction, hip flexion, knee extension, ankle dorsiflexion and plantar flexion.?Strength 4+/5 left hamstring flexion, 5/5 right hamstring flexion. ?Reflexes:?2+ and symmetric in biceps??and knees bilaterally. ??1+ bilateral tricepand brachioradialis jerks. ??Unable to elicit bilateral ankle jerks. Negative Kady's bilaterally.? Tone: Normal ? Gait: Wide-based,??somewhat slow and unsteady.?? Patient seems to be favoring his right leg which appears to be quite stiff.?? The patient is able to stand on his??left leg for 2 to 3 seconds without any assistance but is not able to stand on his right leg for any length of time. Assessment/Plan 1.??Cervical spondylosis??M47.812 The patient has been struggling with chronic neck pain??for years but??more recently this increase significantly.?? While the pain in his neck has improved some but is still present and he now has significantly decreased range of motion particular with rotation to the right. ??He also has frequent??tingling of??the fingers on both of his hands.?? The patient also feels that his balance and gait are getting much worse which is concerning for cervical spinal stenosis.?He has extensive conservative treatment including trial of multiple medications, physical therapy and chiropractic treatmentsregularly with??again some improvement in his??pain but persistence in??the rest of his symptoms. ??The patient has known significant cervical disc degeneration and spondylosis and his MRI of the cervical spine from 2021 also shows multilevel foraminal narrowing and??thecal sac indentation but no significant central stenosis. ??I am concerned that this may have progressed.?? We will obtain an MRIof the cervical spine without contrast and I am also recommending obtaining flexion-extension cervical spine x-rays to ensure there is no abnormal movement of the cervical spine. ??The patient is in agreement. Ordered: MRI Spine Cervical w/o Contrast, 07/05/23, Routine, Reason: Cervical spondylosis and degeneration, balance problem and gait disturbance, paresthesias, No, No, Transport Mode: Ambulatory, Cervical spondylosis Degeneration of cervical intervertebral disc Balance problem Gait dist... XR Spine Cervical 2 or 3 Views, 07/05/23, Routine, Reason: cervical spondylosis, FLEX/EXT ONLY, Transport Mode: Ambulatory, Cervical spondylosis Degeneration of cervical intervertebral disc, ABN Status: Not Required ?? 2.??Degeneration of cervical intervertebral disc??M50.30 Ordered: MRI Spine Cervical w/o Contrast, 07/05/23, Routine, Reason: Cervical spondylosis and degeneration, balance problem and gait disturbance, paresthesias, No, No, Transport Mode: Ambulatory, Cervical spondylosis Degeneration of cervical intervertebral disc Balance problem Gait dist... XR Spine Cervical 2 or 3 Views, 07/05/23, Routine, Reason: cervical spondylosis, FLEX/EXT ONLY, Transport Mode: Ambulatory, Cervical spondylosis Degeneration of cervical intervertebral disc, ABN Status: Not Required ?? 3.??Balance problem??R26.89 Ordered: MRI Spine Cervical w/o Contrast, 07/05/23, Routine, Reason: Cervical spondylosis and degeneration, balance problem and gait disturbance, paresthesias, No, No, Transport Mode: Ambulatory, Cervical spondylosis Degeneration of cervical intervertebral disc Balance problem Gait dist... MRI Spine Lumbar w/o Contrast, 07/05/23, Routine, Reason: s/p lumbar fusion, lumbar spinal stenosis, No, No, Transport Mode: Ambulatory, Balance problem Gait disturbance Paresthesias S/P lumbarfusion Lumbar spinal stenosis, ABN Status: Not Required MRI Spine Thoracic w/o Contrast, 07/05/23, Routine, Reason: Proximal right lower extremity weakness, gait disturbance, No, No, Transport Mode: Ambulatory, Proximal leg weakness Gait disturbance Balance problem, ABN Status: Not Required ?? 4.??Gait disturbance??R26.9 Patient's balance has progressively been getting worse over the last year or 2??but he also feels that he has a shuffling gait.?? On his physical examination today he does have an abnormal gait that is wide-based and seems to be quite stiff in his right leg.?? In addition to the gait and balance changes,??he also is having difficulty with his speech where he has trouble getting his words out at times which was noticeable during his visit today. ??He also feels that his memory is worsening.?? Inaddition to??evaluating??his spine I am recommending referral to neurology as a spine problem couldnot explain the speech problem or memory issues. ??He is in agreement. Ordered: MRI Spine Cervical w/o Contrast, 07/05/23, Routine, Reason: Cervical spondylosis and degeneration, balance problem and gait disturbance, paresthesias, No, No, Transport Mode: Ambulatory, Cervical spondylosis Degeneration of cervical intervertebral disc Balance problem Gait dist... MRI Spine Lumbar w/o Contrast, 07/05/23, Routine, Reason: s/p lumbar fusion, lumbar spinal stenosis, No, No, Transport Mode: Ambulatory, Balance problem Gait disturbance Paresthesias S/P lumbarfusion Lumbar spinal stenosis, ABN Status: Not Required MRI Spine Thoracic w/o Contrast, 07/05/23, Routine, Reason: Proximal right lower extremity weakness, gait disturbance, No, No, Transport Mode: Ambulatory, Proximal leg weakness Gait disturbance Balance problem, ABN Status: Not Required ?? 5.??Paresthesias??R20.2 Ordered: MRI Spine Lumbar w/o Contrast, 07/05/23, Routine, Reason: s/p lumbar fusion, lumbar spinal stenosis, No, No, Transport Mode: Ambulatory, Balance problem Gait disturbance Paresthesias S/P lumbarfusion Lumbar spinal stenosis, ABN Status: Not Required ?? 6.??Proximal leg weakness??R29.898 The patient reports that he has trouble with lifting his right leg. ??He feels weak??and has trouble with??stairs.?? He has mild weakness of the left hamstring as well.?? Given his gait changes, balance issues as well as this proximal weakness as well as hamstring weakness I am recommending MRI of the thoracic spine as well. Ordered: MRI Spine Thoracic w/o Contrast, 07/05/23, Routine, Reason: Proximal right lower extremity weakness, gait disturbance, No, No, Transport Mode: Ambulatory, Proximal leg weakness Gait disturbance Balance problem, ABN Status: Not Required ?? 7.??S/P lumbar fusion??Z98.1 The patient struggles with chronic low back pain.?? He had a lumbar fusion at L4-5 when he lived [facility] in 2015 which helped for a couple of years but it is progressively worsened.?? He has done extensive conservative treatment including trial of multiple medications including topical medications, therapy, chiropractic treatments and??Regentex platelet injections with??no lasting relief. ??His imaging from 2021 does reveal adjacent segment degeneration at the L3-4 level as well as stenosis at the L3-4 and L2-3 levels.?? Given that it has been a couple of years since he has had any lumbar spine imaging I am recommending obtaining MRI of the lumbar spine with contrast as well as AP and lateral and flexion-extension lumbar spine x-rays. Ordered: MRI Spine Lumbar w/o Contrast, 07/05/23, Routine, Reason: s/p lumbar fusion, lumbar spinal stenosis, No, No, Transport Mode: Ambulatory, Balance problem Gait disturbance Paresthesias S/P lumbarfusion Lumbar spinal stenosis, ABN Status: Not Required XR Spine Lumbosacral 4+ Views, 07/05/23, Routine, Reason: s/p lumbar fusion, AP/Lat and FLEX/EXT, Transport Mode: Ambulatory, S/P lumbar fusion Lumbar spinal stenosis, ABN Status: Not Required ?? 8.??Lumbar spinal stenosis??M48.061 Ordered: MRI Spine Lumbar w/o Contrast, 07/05/23, Routine, Reason: s/p lumbar fusion, lumbar spinal stenosis, No, No, Transport Mode: Ambulatory, Balance problem Gait disturbance Paresthesias S/P lumbarfusion Lumbar spinal stenosis, ABN Status: Not Required XR Spine Lumbosacral 4+ Views, 07/05/23, Routine, Reason: s/p lumbar fusion, AP/Lat and FLEX/EXT, Transport Mode: Ambulatory, S/P lumbar fusion Lumbar spinal stenosis, ABN Status: Not Required ?? Plan: MRI cervical, thoracic and lumbar spines without contrast. AP and lateral and flexion-extension lumbar spine x-rays. Flexion and extension cervical spine x-rays. Referral to neurology. Future Orders MRI Spine Cervical w/o Contrast, 07/05/23, Routine, Reason: Cervical spondylosis and degeneration, balance problem and gait disturbance, paresthesias, No, No, Transport Mode: Ambulatory, Cervical spondylosis Degeneration of cervical intervertebral disc Balance problem Gait dist... MRI Spine Lumbar w/o Contrast, 07/05/23, Routine, Reason: s/p lumbar fusion, lumbar spinal stenosis, No, No, Transport Mode: Ambulatory, Balance problem Gait disturbance Paresthesias S/P lumbarfusion Lumbar spinal stenosis, ABN Status: Not Required MRI Spine Thoracic w/o Contrast, 07/05/23, Routine, Reason: Proximal right lower extremity weakness, gait disturbance, No, No, Transport Mode: Ambulatory, Proximal leg weakness Gait disturbance Balance problem, ABN Status: Not Required XR Spine Cervical 2 or 3 Views, 07/05/23, Routine, Reason: cervical spondylosis, FLEX/EXT ONLY, Transport Mode: Ambulatory, Cervical spondylosis Degeneration of cervical intervertebral disc, ABN Status: Not Required XR Spine Lumbosacral 4+ Views, 07/05/23, Routine, Reason: s/p lumbar fusion, AP/Lat and FLEX/EXT, Transport Mode: Ambulatory, S/P lumbar fusion Lumbar spinal stenosis, ABN Status: Not Required Referral Orders Referral Management, Medical Service: Neurology, Reason: Gait disturbance, progressive speech difficulty, worsening memory, Start: 07/05/23, Instructions: [facility] Dr. [place] Problem List/Past Medical History Ongoing Balance problem Cervical spondylosis Degeneration of cervical intervertebral disc Gait disturbance Lumbar spinal stenosis Paresthesias Proximal leg weakness S/P lumbar fusion Historical No qualifying data Procedure/Surgical History ???Bilateral [...] Cancer: Mother. Diagnostic Results Diagnostic Study Interpretation: X-ray of the cervical spine was reviewed with the patient. There are multilevel significant degenerative and arthritic changes in the cervical spine.?? There is an anterolisthesis of C4 over C5.?? There is significant intervertebral disc height loss from C4-T1.?? This is most pronounced at C5-6 where it appears to be [id number] or there may be potential autofusion at this level.?? There are multilevel facet changes and anterior osteophytes. I also reviewed the patient's MRI of the cervical spine from??February 2022 and??there is similar findings with advanced degenerative and spondylotic changes as well as the listhesis at C4-5.?? There was multilevel foraminal narrowing bilaterally that was severe??at certain levels but there is no sig nificant central stenosis. MRI of the??lumbar spine from 2021 was also reviewed. ??Status post??interbody??fusion with particular screw placement L4-5.?? There was evidence of adjacent segment degeneration at the L3-4 level with??stenosis at this level as well as??at the L2-3 level. ??There are multilevel degenerative and spondylotic changes in the lumbar spine. Electronically Signed on 07/05/23 03:43 PM Becki Milton APRN-JOEY Patient Care team information Care Team Personnel Name: ANNE RANGEL APRN Position: No Access Member Role: Primary Care Physician Address: Address: [address] [place] [address] [address] [place], [place] [id number]
--- OUTSIDE RECORDS SUMMARY | 2024-01-08 18:27 | XMS_ITS | Encounter Summary ---
[place] [address] Care Team Providers Care Clinical Laboratory Scientist Name Role Phone Unavailable Primary Care Provider Unavailabl e Reason for Visit * Consultation (Routine) - Closed Specialty Diagnoses / Procedures Referred By Contac t Referred To Contact Urology Diagnoses PERSISTENT NOCTURIA FOR SEVERAL YEARS Corazon Narayan, 2 YEAR [employer] [address] [place] [address] [facility] [place] [address] Referral ID Status Reason Start Date Expiration Date V isits Requested Visits Authorized [id number] Closed Consult, Test & Treat Connection Center PCP Updated and/or Approved 02/10/2021 02/10/2022 6 6 Encounter Details Date Type Department Care Team (Late st Contact Info) Description 12/24/2021 10:00 AM EDT Office [place] [address] Becky Walker APRN [facility] [place] [address] Prostate cancer screening; OAB (overactive bladder) Social History Tobacco Use Types Packs/Day Years Used Date Smoking Tobacco: Former Cigarettes Q uit: 1970 Smokeless Tobacco: Never Sex and Gender Information Value Date Recorded Sex Assigned at Not on file Gender Identity Not on file Sexual Orientation Not on file documented as of this encounter Last Filed Vital Signs Vital Sign Reading Time Taken Comments Blood Pressure 138/90 12/24/2021 10:25 AM EDT Pulse 80 12/24/2021 10:25 AM EDT Temperature - - Respiratory Rate - - Oxygen Saturation - - Inhaled Oxygen Concentration - - Weight - - Height - - Body Mass Index - - documented in this encounter Progress Notes * Becky Walker APRN - 12/24/2021 10:00 AM EDT [facility] SECTION OF UROLOGY NEW PATIENT CONSULT Patient Primary Care Provider: Corazon Narayan APRN Referring Provider: Corazon Narayan APRN History of Present Illness: Dedrick Hairston is a 76 y.o. year old man, seen at the request of KELLIE Gonzalez who presents for evaluation and assessment of nocturia. He has had these symptoms for the past few years and tried tamsulosin/terazosin with terrible side effects. Notes from Galilea Narayan APRN have been received and reviewed. Dedrick presents today with nocturia. He voids every 2 hours, urgently. He feels he empties ok. He states flomax aggravated his symptoms, not sure about the terazosin, but it did not work. He knows he had side effects tho. Stream ok, voids small amounts, no intermittent. He does leak urine with urge, when full on the wayto the bathroom, not with BLADE. No pads No hematuria. No history of UTIs. Bowels are normal-daily soft He drinks very little coffee, drinks 2 cups of black tea (16 oz), kombucha and green tea (3 quarts per day), water: no plain water. He feels rested generally, he has gotten used to getting up every few hours He does not limit fluids 3 hours prior to bed. He tried saw palmetto without benefit. 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 He would like screening today. GENERAL HEALTH: excellent ROS: Constitutional: Denies fever, chills, weight loss/gain Eyes: Denies acute vision change ENT: Denies sinus congestion, recent URI Pulmonary: Denies asthma, cough, recent pneumonia, SOB Cardiovascular: Denies chest pain, arrhythmia, NV GI:Denies GI bleed, GERD, constipation or diarrhea : As per HPI Endocrine: Denies diabetes, thyroid disease Integumentary: Denies skin cancer, rash Heme/lymph: Denies easy bleeding/bruising Neurologic: Denies CVA/TIA Psychiatric: Denies depression or anxiety Musculoskeletal: Denies back pain, weakness Allergy/immunology: Denies immune disorder Anesthesia complications: Denies PMHx: Dizziness Giddiness Lyme disease Surgeries: eye surgery, right shoulder surgery Social history: with female partner. Smoked 50-60 years ago, smoked for a few years, socially only.2 drinks per day before dinner. 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 Healthy appearance. Color normal. No significant skin lesions. Head: atraumatic and normocephalic Abdomen: benign without masses, rebound, guarding, or tenderness. No hepatosplenogmegaly. No CVA tenderness. Genitalia:Scrotum - Color and texture normal; no masses. Testicles and epididymides without tenderness or masses. Penis -circumcised with orthotopic meatus; nomasses or surface lesion. Rectal: The anus and perineum are normal. Rectal sphincter tone is normal. There is not any levatorani tenderness, and there are no rectal masses. The prostate is smooth, without masses 40 grams Musculoskeletal: grossly normal, no gait issues Neurologic: grossly normal Skin: grossly normal PVR with scanner by my review: 0-18 cc U/A by my review: neg PSA history by my review: none on file IMPRESSION: Prostate cancer screening LUTs/nocturia, OAB-he empties well PLAN/RECOMMENDATIONS: We discussed the contributors to LUTS/OAB. He understands. We discussed behavioral therapies per the handout given to him today. He will pursue these. He willmoderate irritants to 16 oz per day, hydrate with water and limit fluids 3 hours prior to bed Call with gross hematuria at any time We discussed medication options including: alpha blockers, 5 alpha reductase inhibitors and PDE5 inhibitors. We also discussed anticholinergics/beta agonists. He will defer. He will try to do this behaviorally. We did not discuss surgical therapies We discussed the pros/cons of prostate cancer screening. He would like to be screened. He is very healthy so we will proceed I answered all questions to the patients apparent satisfaction. Becky Faustin APRN [facility] Section of Urology [phone] documented in this encounter Plan of Treatment Not on file documented as of this encounter Results * PSA (Ultrasensitive), total and free (12/24/2021 11:14 AM EDT) Prostate Specific Antigen (Ultrasensitive) 0.92 0.00 - 4.00 ng/mL [facility] Comment: PLEASE NOTE: The above reference interval is intended for healthy males with an intact prostate. Values within this reference interval may indicate recurrence in men who have undergone radical prostatectomy. This result was generated using a IIDas immunoassay. ??Results obtained from other methods or manufacturers cannot be used interchangeably with this method. Prostate Specific Antigen, Free 0.5 ng/mL [facility] Comment: This result was generated using a Kristine Geo immunoassay. ??Results obtained from other methods or manufacturers cannot be used interchangeably with this method. PSA % Free Not Calculated % [facility] Comment: The percent free PSA was not calculated for this sample as the total PSA value was not in the range of 4-10 ng/mL. ??The utility of the percent free PSA in the setting of total PSA values below 4 or above 10 ng/mL has not been evaluated. Probability of finding ICE HANDLER on needle biopsy by age in years: [...] Lab Becky Faustin APRN CHEMISTRY ORDER WINSOME [facility] [place] [address] documented in this encounter Visit Diagnoses Diagnosis Prostate cancer screening Special screening for malignant neoplasm of prostate OAB (overactive bladder) Hypertonicity of bladder documented in this encounter
--- OUTSIDE RECORDS SUMMARY | 2024-01-08 18:27 | XMS_ITS | Continuity of Care Document ---
Author Organization [facility] Address [address] [place] [address] Care Team Providers Care Pipe Fitter Marine Name Role Phone ANNE RANGEL APRN Primary Care Physician Encounter LTTL_MI FIN NBR [id number] Date(s): 09/14/23 - 09/14/[address] [address]- [place] Discharge Disposition: Home or Self Care Attending Physician: Eladio Mckeon DO ([place]) Admitting Physician: Eladio Mckeon DO ([place]) Referring Physician: Eladio Mckeon DO ([place]) Allergies, Adverse [...] Exam Date Time Procedure Performing Provider Status 09/14/23 2:36 PM MRI Brain w/o Contrast Mary Brown nn; Auth (Verified) Notes: (MRI Brain w/o Contrast) Reason For Exam: NPH symptoms MRI Brain w/o Contrast EXAM DESCRIPTION: MRI Brain w/o Contrast 09/14/2023 INDICATION: NPH SYMPTOMS TECHNIQUE: Technique: Multiplanar MRI examination of the head including FLAIR and diffusion series. COMPARISON: None FINDINGS: No intracranial mass effect or midline shift. Prominence of the ventricular system and cortical sulci consistent with generalized cerebral atrophy. Diffusion weighted images demonstrate no focal area of acute or recent infarct. No hydrocephalus, extra-axial fluid collection or blood breakdown products Multiple nonspecific foci of periventricular and subcortical white matter T2 signal prolongation bilaterally likely reflecting chronic microangiopathy. Cerebellar tonsil position is normal. The pituitary gland demonstrates normal morphology and signal intensity. No significant temporal horn asymmetry. Visualized vascular flow voids and cranial nerves appear within normal limits. The visualized paranasal sinuses are grossly clear. IMPRESSION: No intracranial mass effect or midline shift. Generalized cerebral atrophy No acute or recent infarct on diffusion series Nonspecific periventricular and subcortical white matter changes bilaterally likely reflecting chronic microangiopathy. JOB #: [id number] Final Signed by: Luis Delgado MD Signed (Electronic Signature): 09/14/2023 2:43 pm Social History Social History Type Response Tobacco Never tobacco user T obacco Use:. Sex Patient Care team information Care Team Personnel Name: ANNE RANGEL APRN Position: No Access Member Role: Primary Care Physician Address: Address: [address] [place] [address] Care Team Related Persons Name: ANTONIO SPEARS Address: Home [address] [place] [address]
[2024-01-09 19:29] LABS: PSA, Screening 0.8 ng/mL (<=6.5)
== END 2024-01-08 18:25 | disposition home or self-care (01) ==
LOC: NCHCN 18:24
PROVIDERS: PCP Family Medicine; Visit Provider Family Medicine
DX: R41.3 Other amnesia (principal); J44.9 Chronic obstructive pulmonary disease, unspecified; N40.1 Benign prostatic hyperplasia with lower urinary tract symptoms
CPT/HCPCS: 80053; 84153; 82607; 82746; 84443; 85025

== ENCOUNTER 2024-02-09 14:46 | Emergency (ER) | payer MEDICARE, SELFPAY ==
--- NOTE | 2024-02-09 14:45 | RT.EKG_ITS ---
APPROVED REPORT Exam: Resting ECG Reason for Exam: Dizziness Patient Location: E HR:73 bpm ECG Measurements Heart Rate 73 AXIS OH 138 P 69 QRSd 115 QRS 61 QT 399 T 45 QTc 440 Conclusion Sinus rhythm. 73 normal axis no stemi
[2024-02-09 14:49] VITALS: BP 170/87; PULSE 70; RESP 18; TEMP 36.6; O2SAT 96
--- NOTE | 2024-02-09 15:00 | DI.MRI_ITS ---
Exam(s) MR BRAIN WO EXAM: MR BRAIN WO CLINICAL HISTORY: dizzines TECHNIQUE: Multiplanar multisequence MRI of the brain was performed. COMPARISON: MR MR CERVICAL SPINE WO from 02/23/2022 CR XR CERVICAL SPINE COMP 4-5V from 06/01/2023 FINDINGS: CEREBRAL PARENCHYMA: There is no evidence of intracranial hemorrhage, mass effect, or shift of midline structures. There are no extra-axial fluid collections. Ventricles are not enlarged or shifted. No evidence of cerebe llar tonsillar ectopia. There is sylvia cisterna magna, unchanged from 02/23/2022.. There is a tiny 2-3 millimeter nonacute lacunar infarct in the left cerebellar hemisphere. Small non specific 2 millimeter focal of signal abnormality noted in left side of the david. No abnormal signal in the midbrain and thalami. There are multiple foci of FLAIR bright signal abnormality in the Mary Grace in supra ventricular white matter consistent with chronic small vessel disease changes. These do no t exhibit hemorrhage, surrounding edema, nor restricted diffusion There is no significant focal signal abnormality evident on diffusion imaging to suggest acute ischem ic event. SWI reveals no evidence of microhemorrhages in the brain. PITUITARY GLAND: No mass nor parasellar abnormality. No obvious abnormality in the cavernous sinuses. FLOW VOIDS: The expected flow void are noted. No evidence of obvious aneurysm nor obvious vascular ma lformation. PARANASAL SINUSES: The visualized paranasal sinuses appear unremarkable. No obvious finding ORBITS: Evidence of bilateral cataract surgery. No other orbital findings. IMPRESSION: No significant acute intracranial findings on this noninfused MRI scan of the brain. There are multiple foci of periventricular signal abnormality consistent with chronic small vessel di sease changes. These are not associated with hemorrhage, surrounding edema nor restricted diffusion to suggest recent ischemic event. Report called by myself to ER physician 02/09/2024 at 4:16 p.m.. DATA REPOSITORY:
[2024-02-09] MEDS: Midazolam 2 MG/2 ML VIAL 4 MG IVP (15:19)
[2024-02-09 15:26] LABS: Abs Immature Grans 0.03 10^3/uL (0.0-0.06); Absolute Basophil Count 0.02 10^3/uL (0.0-0.2); Absolute Eosinophil Count 0.07 10^3/uL (0.0-0.7); Absolute Lymphocyte Count 0.89 10^3/uL (1.2-3.4); Absolute Monocyte Count 0.48 10^3/uL (0.1-0.8); Absolute Neutrophil Count 4.36 10^3/uL (1.2-6.7); Basophils % 0.3 %; Eosinophils % 1.2 %; HCT 40.5 % (40.0-50.0); HGB 13.5 g/dL (13.5-17.5); Immature Grans % 0.5 %; Lymphocytes % 15.2 %; MCH 34.1 pg (27.0-33.0); MCHC 33.3 % (32.0-36.0); MCV 102 fL (80-95); MPV 10.4 fL (8.0-11.0); Monocytes % 8.2 %; Neutrophils % 74.6 %; Platelet Count 234 10^3/uL (130-400); RBC 3.96 10^6/uL (4.36-5.78); RDW 12.8 % (11.8-14.1); WBC 5.85 10^3/uL (4.4-10.8)
[2024-02-09 15:51] LABS: ALT 35 U/L (16-63); AST 29 U/L (15-37); Albumin 3.5 g/dL (3.4-5.0); Alkaline Phosphatase 69 U/L (46-116); Anion Gap 7.5 mmol/L (3-11); BUN 29 mg/dL (7-18); Bilirubin, Total 0.39 mg/dL (0.2-1.0); CO2 26.5 mmol/L (21.0-32.0); Chloride 100 mmol/L (98-107); Estimated GFR 77.04 (mL/min/1.73m2); Glucose 88 mg/dL (74-106); Potassium 4.2 mmol/L (3.5-5.1); Sodium 134 mmol/L (136-145); TSH 1.87 uIU/Ml (0.36-3.74); Total Protein 6.9 g/dL (6.4-8.2)
--- OUTSIDE RECORDS SUMMARY | 2024-02-09 16:30 | XMS_ITS | Encounter Summary ---
[place] [address] Care Team Providers Care Director And Professor Name Role Phone Unavailable Primary Care Provider Unavailabl e Reason for Referral * Consultation (Routine) - Denied Specialty Diagnoses / Procedures Referred By Contac t Referred To Contact [facility] Diagnoses Other cervical disc degeneration, unspecified cervical region [facility] [address] [address] [facility] [place] [address] Referral ID Status Reason Start Date Expiration Date V isits Requested Visits Authorized [id number] Denied Consult, Test & Treat PCP Updated and/or Approved 06/07/2023 06/06/2024 1 0 Encounter Details Date Type Department Care Team (Late st Contact Info) Description 06/07/2023 Transcribe Orders eD Incoming Referrals [phone] [facility] PA [address] [place] [phone] Other cervical disc degeneration, unspecified cervical region [...]
--- OUTSIDE RECORDS SUMMARY | 2024-02-09 16:30 | XMS_ITS | Clinical Summary ---
Author Organization [facility] Address [address] [place] [address] Care Team Providers Care Cnc Service Technician Name Role Phone Unavailable Primary Care Provider Unavailabl e Encounters Date Type Department Care Team Description 01/09/2024 Lab Requisition [facility] Pathology & Laboratory Medicine - [address] [address] Outr Resulting Lab, Provider from Last 3 Months Social History Tobacco Use Types Packs/Day Years Used Date Smoking Tobacco: Never Assessed Sex and Gender Information Value Date Recorded Sex Assigned at Not on file Gender Identity Not on file Sexual Orientation Not on file Plan of Treatment Health Maintenance Due Date Last Done Comments Hepatitis C Screen 1945 RSV Immunization ( o r 60+ Years) (1 - 1-dose 60+ series) 2005 Fall Risk Screening 2010 COVID-19 Vaccine ( season) 2023 Procedures Procedure Name Priority Date/Time Associated Diagnosis Comments PSA TOTAL, DIAGNOSTIC Routine 01/08/2024 11:30 EDT from Last 3 Months Results * PSA TOTAL, DIAGNOSTIC (01/08/2024 11:30 EDT) PSA 0.8 <=6.5 ng/mL 01/09/2024 19:24 EDT [facility] Blood VENOUS BLOOD / Unknown 01/08/2024 11:30 EDT 01/09/2024 17:53 EDT Narrative [facility] - 01/09/2024 19:24 EDT NOTE: Serum PSA concentration should not be interpreted as absolute evidence for the presence or absence of malignant disease. Assayed on Siemens ADVIA Centaur XPT using chemiluminescent technology.??Values obtained by using different assay methods cannot be used interchangeably. Provider Outr Resulting Lab CHEMISTRY & BLOOD GAS ORDERABLES [facility] [address] [place] [address] from Last 3 Months
--- OUTSIDE RECORDS SUMMARY | 2024-02-09 16:30 | XMS_ITS | Encounter Summary ---
Author Organization [facility] [place] [address] Care Team Providers Care Whitewasher Name Role Phone Unavailable Primary Care Provider Unavailabl e Encounter Details Date Type Department Care Team (Latest Contact Info) Description 12/24/2021 11:05 AM EDT Laboratory Appointment Lab [address] [place] [address] Prostate cancer screening Social History Tobacco Use [...] Antigen (Ultrasensitive) 0.92 0.00 - 4.00 ng/mL [facility] Comment: PLEASE NOTE: The above reference interval is intended for healthy males with an intact prostate. Values within this reference interval may indicate recurrence in men who have undergone radical prostatectomy. This result was generated using a Kristine Geo immunoassay. ??Results obtained from other methods or manufacturers cannot be used interchangeably with this method. Prostate Specific Antigen, Free 0.5 ng/mL [facility] Comment: This result was generated using a Kristine Geo immunoassay. ??Results obtained from other methods or manufacturers cannot be used interchangeably with this method. PSA % Free Not Calculated % [facility] Comment: The percent free PSA was not calculated for this sample as the total PSA value was not in the range of 4-10 ng/mL. ??The utility of the percent free PSA in the setting of total PSA values below 4 or above 10 ng/mL has not been evaluated. Probability of finding FIRE REGULATOR on needle biopsy by age in years: [...] Becky Faustin APRN CHEMISTRY ORDER WINSOME ROXANA [facility] [place] [address] documented in this encounter Visit Diagnoses Diagnosis Prostate cancer screening Special screening for malignant neoplasm of prostate documented in this encounter
--- OUTSIDE RECORDS SUMMARY | 2024-02-09 16:30 | XMS_ITS | Referral Summary ---
Author Organization [facility] Address [address] [place] [address] Care Team Providers Care Real Estate Management Specialist Name Role Phone Unavailable Primary Care Provider Unavailabl e Encounters Date Type Department Care Team Description 01/09/[address] [facility] Pathology & Laboratory Medicine - [address] [address] Outr Resulting Lab, Provider from Last 3 Months Social History Tobacco Use Types Packs/Day Years Used Date Smoking Tobacco: Never Assessed Sex and Gender Information Value Date Recorded Sex Assigned at Not on file Gender Identity Not on file Sexual Orientation Not on file Plan of Treatment Not on file Procedures Procedure Name Priority Date/Time Associated Diagnosis Comments PSA TOTAL, DIAGNOSTIC Routine 01/08/2024 11:30 EDT from Last 3 Months Results * PSA TOTAL, DIAGNOSTIC (01/08/2024 11:30 EDT) PSA 0.8 <=6.5 ng/mL 01/09/2024 19:[address] [facility] Blood VENOUS BLOOD / Unknown 01/08/2024 11:30 EDT 01/09/2024 17:[address] [facility] - 01/09/2024 19:24 EDT NOTE: Serum PSA concentration should not be interpreted as absolute evidence for the presence or absence of malignant disease. Assayed on Siemens ADVIA Centaur XPT using chemiluminescent technology.??Values obtained by using different assay methods cannot be used interchangeably. Provider Outr Resulting Lab CHEMISTRY & BLOOD GAS ORDERABLES [facility] [address] [place] [address] from Last 3 Months
--- OUTSIDE RECORDS SUMMARY | 2024-02-09 16:30 | XMS_ITS | Encounter Summary ---
Author Organization [facility] [place] [address] Care Team Providers Care Bender Hand Name Role Phone Unavailable Primary Care Provider Unavailabl e Encounter Details Date Type Department Care Team (Latest Contact Info) Description 03/01/2022 8:20 AM EDT TH Visit (TeleHealth) [place] [address] Becky Walker APRN [facility] [place] [address] PATIENT NOT SEEN Social History Tobacco Use Types Packs/Day Years Used Date Smoking Tobacco: Former Cigarettes Q uit: 1970 Smokeless Tobacco: Never Sex and Gender Information Value Date Recorded Sex Assigned at Not on file Gender Identity Not on file Sexual Orientation Not on file documented as of this encounter Progress Notes * Becky Walker APRN - 03/01/2022 8:20 AM EDT [facility] SECTION OF UROLOGY OUT PATIENT FOLLOW UP [...] consent to receiving health care services at [facility] through telemedicine. We discussed the opportunities and limitations of delivering health care services through telemedicine. I told the patient that the telemedicine service is being delivered over a secure connection, except in the event of emergency conditions when such requirements may be waived. Patient informed thatmission [facility] informed consent form is available for patient's review in [facility]'s patient portal, [facility]. 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 Smoked 50-60 years ago, smoked for a few years, socially only.2 drinks per day before dinner. 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 documented in this encounter Plan of Treatment Not on file documented as of this encounter Visit Diagnoses Diagnosis DH PATIENT NOT SEEN documented in this encounter
--- OUTSIDE RECORDS SUMMARY | 2024-02-09 16:30 | XMS_ITS | Encounter Summary ---
[place] [address] Care Team Providers Care Sketch Artist Name Role Phone Unavailable Primary Care Provider Unavailabl e Reason for Visit * Consultation (Routine) - Closed Specialty Diagnoses / Procedures Referred By Contac t Referred To Contact Urology Diagnoses PERSISTENT NOCTURIA FOR SEVERAL YEARS Corazon Narayan, STEEL CHECKER [address] [place] [address] [facility] [place] [address] Referral ID Status Reason Start Date Expiration Date V isits Requested Visits Authorized [id number] Closed Consult, Test & Treat Connection Center PCP Updated and/or Approved 02/10/2021 02/10/2022 6 6 Encounter Details Date Type Department Care Team (Late st Contact Info) Description 12/24/2021 10:00 AM EDT [place] [address] Becky Walker APRN [facility] 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 He would like screening today. GENERAL HEALTH: excellent ROS: Constitutional: Denies fever, chills, weight loss/gain Eyes: Denies acute vision change ENT: Denies sinus congestion, recent URI Pulmonary: Denies asthma, cough, recent pneumonia, SOB Cardiovascular: Denies chest pain, arrhythmia, OR GI:Denies GI bleed, GERD, constipation or diarrhea [...] only.2 drinks per day before dinner. 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 Becky Faustin APRN [facility] [phone] documented in this encounter Plan of Treatment Not on file documented as of this encounter Results * PSA (Ultrasensitive), total and free (12/24/2021 11:14 AM EDT) Prostate Specific Antigen (Ultrasensitive) 0.92 0.00 - 4.00 ng/mL [facility] Comment: PLEASE NOTE: The above reference interval is intended for healthy males with an intact prostate. Values within this reference interval may indicate recurrence in men who have undergone radical prostatectomy. This result was generated using a Combined Poweras immunoassay. ??Results obtained from other methods or manufacturers cannot be used interchangeably with this method. Prostate Specific Antigen, Free 0.5 ng/mL [facility] Comment: This result was generated using a [place] Geo immunoassay. ??Results obtained from other methods or manufacturers cannot be used interchangeably with this method. PSA % Free Not Calculated % [facility] Comment: The percent free PSA was not calculated for this sample as the total PSA value was not in the range of 4-10 ng/mL. ??The utility of the percent free PSA in the setting of total PSA values below 4 or above 10 ng/mL has not been evaluated. Probability of finding INSPECTOR CHIEF on needle biopsy by age in years: [...] Lab Becky Faustin APRN CHEMISTRY ORDER WINSOME [facility] [place] [address] documented in this encounter Visit Diagnoses Diagnosis Prostate cancer screening Special screening for malignant neoplasm of prostate OAB (overactive bladder) Hypertonicity of bladder documented in this encounter
--- OUTSIDE RECORDS SUMMARY | 2024-02-09 16:30 | XMS_ITS | Clinical Summary ---
Author Organization [facility] Address [facility] [place] [address] Care Team Providers Care Marriage Counselor Minister Name Role Phone Unavailable Primary Care Provider [...] Last Done Comments Hepatitis C Screening 1963 Tetanus/Diphtheria/Pertussis Vaccines (1 - Tdap) 02/22 Zoster vaccine (1 of 2) 1995 Advance Directive 02/23/2000 Pneumoccocal Vaccine: 65+ (1 of 1 - PCV) 2010 Covid-19 Vaccine (2022-24 season) 2024 Influenza (Flu) vaccine (1 o f 1 - Influenza standard series) 01/14/2024
--- OUTSIDE RECORDS SUMMARY | 2024-02-09 16:30 | XMS_ITS | Encounter Summary ---
Author Organization [facility] Address [address] [place] [address] Care Team Providers Care Post Partum Nurse Name Role Phone Unavailable Primary Care Provider Unavailabl e Encounter Details Date Type Department Care Team (Late st Contact Info) Description 01/09/2024 Lab Requisition [facility] Pathology & Laboratory Medicine - [address] [address] Outr Resulting Lab, Provider Social History Tobacco Use Types Packs/Day Years [...] PSA TOTAL, DIAGNOSTIC Routine 01/08/2024 11:30 EDT documented in this encounter Results * PSA TOTAL, DIAGNOSTIC (01/08/2024 11:30 EDT) PSA 0.8 <=6.5 ng/mL 01/09/2024 19:24 EDT [facility] Blood VENOUS BLOOD / Unknown 01/08/2024 11:30 EDT 01/09/2024 17:53 EDT Narrative [facility] - 01/09/2024 19:24 EDT NOTE: Serum PSA concentration should not be interpreted as absolute evidence for the presence or absence of malignant disease. Assayed on Siemens ADVIA Centaur XPT using chemiluminescent technology.??Values obtained by using different assay methods cannot be used interchangeably. Provider Outr Resulting Lab CHEMISTRY & BLOOD GAS ORDERABLES [facility] [address] [place] [address] documented in this encounter Visit Diagnoses Not on filedocumented in this encounter
[2024-02-09 16:35] LABS: Bilirubin Negative (Negative); Blood Negative (Negative); Clarity Clear (Clear); Glucose Negative (Negative); Ketones 15 mg/dL (Negative); Leukocyte Esterase Negative (Negative); Nitrite Negative (Negative); Specific Gravity 1.025 (1.005-1.025); Urobilinogen 0.2 mg/dL (Up to 0.2)
--- NOTE | 2024-02-09 18:10 | ED.GENADUL_ITS ---
Discharge Plan Disposition Patient Disposition: Home Condition: Stable Discharge Details Clinical Impression: Dizziness Primary Care Provider: Duarte Torrez ED Provider: Merari Kovacs Home Meds and New Rx's Prescriptions: No Action Anoro Ellipta 62.5-25 mcg/actuation blister with device 1 inh inhalation DAILY guaifenesin [Mucus Relief ER] 600 mg tablet extended release 12hr 600 mg PO BID acetaminophen 325 mg tablet 650 mg PO Q6H PRN albuterol sulfate 90 mcg/actuation HFA aerosol inhaler See Rx Instructions inhalation Q6H PRN Rx Instructions: -2 puffs inhaled every 6 hours PRN; montelukast 10 mg tablet 10 mg PO ONCE Patient Comments: TAKE ONE TABLET BY MOUTH EVERY EVENING Discharge Instructions Additional Instructions: * There is no sign of stroke, dehydration or infection on emergency department workup today. * I recommend that you follow-up with your physical therapist and work on balance and gait issues. * Your ongoing symptoms can be followed and managed by your primary care provider HPI General Date/Time Provider Initiated Documentation: 02/09/24 14:55 . Limitations to Documentation: no limitations . Information obtained by: patient and family () . HPI Narrative: 78-year-old gentleman with past medical history of asthma, pulmonary hypertension presents for evaluation of dizziness. The patient reports acute onset dizziness this morning. He feels like he is swimming and molasses. Although he initially states that symptoms started this morning, the reports that no he had been feeling dizzy last night. He reports that he has difficulty going from sitting to standing and that he often has to use things to help support his walk. He states that this has been ongoing for about 3 years. He reports that he did also have dizziness for 2 days last week. The dizziness is not associated with headache or visual change, no nausea or vomiting after further questioning the patient reports that the symptoms of intermittent dizziness have ongoing for quite some time. There are no other acute symptoms. Related Data Home Medications ?Medication ?Instructions ?Recorded ?Confirmed acetaminophen 325 mg tablet 650 mg PO Q6H PRN 04/21/21 02/09/24 albuterol sulfate 90 mcg/actuation See Rx Instructions inhalation Q6H 01/07/22 02/09/24 aerosol inhaler PRN guaifenesin 600 mg tablet, 600 mg PO BID 06/13/22 02/09/24 extended release 12 hr (Mucus Relief ER) umeclidinium 62.5 mcg-vilanterol 1 inh inhalation DAILY 06/13/22 02/09/24 25 mcg/actuation powdr for inhalation (Anoro Ellipta) montelukast 10 mg tablet 10 mg PO ONCE 02/09/24 02/09/24 Allergies Allergy/AdvReac Type Severity Reaction Status Date / Time dog dander Allergy Unknown Unknown Verified 02/09/24 14:56 penicillin V Allergy Unknown Verified 02/09/24 14:56 secobarbital (From [place]) Allergy Unknown Verified 02/09/24 14:56 Molds and Smuts Allergy Unknown Uncoded 02/09/24 14:56 General Stated Complaint: Dizzy/Sync TRAVIS: 3 Exam Narrative Exam Narrative: Review of Systems: All systems reviewed & are unremarkable except as noted in HPI and below Well-developed, no acute distress NCAT PERRL, normal conjunctiva, no nystagmus RRR no murmur Unlabored respiratory effort ctab Nondistended abdomen soft non tender no focal neurologic deficits, no dysmetria, pass pointing or pronator drift. is a little unstable when first standing, but no ataxia and negative rhomberg Appropriate mood and affect Course Vital Signs Vital signs: Vital Signs Temperature 36.6 C 02/09/24 14:49 Pulse 70 02/09/24 14:49 Respiratory Rate 18 02/09/24 14:49 Blood Pressure 170/87 H 02/09/24 14:49 Pulse Oximetry 96 02/09/24 14:49 Temperature 36.6 C 02/09/24 14:49 Pulse 70 02/09/24 14:49 Respiratory Rate 18 02/09/24 14:49 Respiratory Effort Normal 02/09/24 14:57 Respiratory Depth Normal 02/09/24 14:57 Respiratory Pattern Normal 02/09/24 14:57 Blood Pressure 170/87 H 02/09/24 14:49 Pulse Oximetry 96 02/09/24 14:49 Pain Level 0 02/09/24 14:49 Lab/Test Results Lab/Test Results: Laboratory Tests Range/Units 02/09/24 02/09/24 15:20 16:25 WBC (4.4-10.8) 10^3/uL 5.85 RBC (4.36-5.78) 10^6/uL 3.96 L Hgb (13.5-17.5) g/dL 13.5 Hct (40.0-50.0) % 40.5 MCV (80-95) fL 102 H MCH (27.0-33.0) pg 34.1 H MCHC (32.0-36.0) % 33.3 RDW (11.8-14.1) % 12.8 Plt Count (130-400) 10^3/uL 234 MPV (8.0-11.0) fL 10.4 Immature Gran % % 0.5 Neutrophils % % 74.6 Lymphocytes % % 15.2 Monocytes % % 8.2 Eosinophils % % 1.2 Basophils % % 0.3 Nucleated RBC % (0.0-0.3) % 0.0 Absolute Neutrophils (1.2-6.7) 10^3/uL 4.36 Absolute Lymphocytes (1.2-3.4) 10^3/uL 0.89 L Absolute Monocytes (0.1-0.8) 10^3/uL 0.48 Absolute Eosinophils (0.0-0.7) 10^3/uL 0.07 Absolute Basophils (0.0-0.2) 10^3/uL 0.02 Sodium (136-145) mmol/L 134 L Potassium (3.5-5.1) mmol/L 4.2 Chloride (98-107) mmol/L 100 Carbon Dioxide (21.0-32.0) mmol/L 26.5 Anion Gap (3-11) mmol/L 7.5 BUN (7-18) mg/dL 29 H Creatinine (0.70-1.30) mg/dL 1.0 Est GFR (CKD-EPI 2020) (mL/min/1.73m2) 77.04 Glucose (74-106) mg/dL 88 Calcium (8.5-10.1) mg/dL 9.0 Magnesium (1.8-2.4) mg/dL 2.0 Total Bilirubin (0.2-1.0) mg/dL 0.39 AST (15-37) U/L 29 ALT (16-63) U/L 35 Alkaline Phosphatase (46-116) U/L 69 Total Protein (6.4-8.2) g/dL 6.9 Albumin (3.4-5.0) g/dL 3.5 TSH (0.36-3.74) uIU/Ml 1.87 Urine Color (Yellow) Yellow Urine Clarity (Clear) Clear Urine pH (5-8) 6.0 Ur Specific [place] (1.005-1.025) 1.025 Urine Protein (Neg-Trace) mg/dL Negative Urine Ketones (Negative) mg/dL 15 H Urine Blood (Negative) Negative Urine Nitrite (Negative) Negative Urine Bilirubin (Negative) Negative Urine Urobilinogen (Up to 0.2) mg/dL 0.2 Ur Leukocyte Esterase (Negative) Negative Urine Glucose (Negative) mg/dL Negative Medical Decision Making Emergent evaluation of dizziness. Initial patient concern was for a TIA however the symptoms have been ongoing for quite some time, likely years. He has not seen his PCP regarding them. Or reached out for further evaluation of dizziness or difficulty with walking. He has no focal neurologic deficit on my examination. His EKG was reviewed and independently interpreted. Sinus rhythm 73, normal axis. There is no acute ischemic change or dysrhythmia. Given his age, I was able to get an MRI of his brain to evaluate for possible mass or acute stroke process causing these progressive worsening of symptoms. I discussed with the radiologist and there is no acute finding. There is a remote lacunar infarct which may be associated with the onset of symptoms previously lab work does not reveal infectious etiology or electrolyte derangement. Renal and liver function within normal limits. His urinalysis does not reveal infection. I recommended physical therapy and the patient then informed me that he actually does go to physical therapy but he has really missed some recent appointments. I have asked why he might be in physical therapy and is unable to tell me why, but I told him that they should work on balance and gait. He should follow-up with his PCP for any ongoing issues. Quality:SDOH Health Related Social Needs: No Data to Display PFSH All Active Problems Dizziness (Acute) Asthma-COPD overlap syndrome (Acute) Sleep apnea (Acute) Pulmonary hypertension (Acute) Pulmonary nodule (Acute) Bronchiectasis (Acute) Asthma, mild persistent (Acute) Tongue leukoplakia (Acute) Medical History Gastritis determined by endoscopy Schatzki's ring GERD without esophagitis Erectile dysfunction Benign prostate hyperplasia Allergic rhinitis Chronic bronchitis Chronic obstructive pulmonary disease IBS (irritable bowel syndrome) Nodule of upper lobe of left lung Spinal stenosis at L4-L5 level Osteoarthritis Elevated BP without diagnosis of hypertension Depression Anxiety disorder Pulmonary fibrosis Spondylolisthesis of lumbar region Spinal stenosis, lumbar region with neurogenic claudication Surgical History S/P tonsillectomy and adenoidectomy History of endoscopy S/P lumbar fusion Family History Mother Heart disease Heart block Social History Smoking/Tobacco Use Status: Former Tobacco Use tobacco type: cigarettes Smoking risk assessment performed?: Yes Alcohol Intake: former Drug use: Never Substance use type: does not use Housing: house Do you feel safe at home: Yes Do you feel safe in your relationship?: Yes
== END 2024-02-09 17:31 | disposition home or self-care (01) ==
PROVIDERS: Emergency Provider Emergency Medicine; PCP Family Medicine
DX: R42 Dizziness and giddiness (principal); I27.20 Pulmonary hypertension, unspecified; Z98.1 Arthrodesis status; Z87.891 Personal history of nicotine dependence
CPT/HCPCS: 80053; 93005; 96374; 99285; 70551; 81003; 83735; 84443; 85025; 93010; 99284; J2250

== ENCOUNTER 2024-05-10 12:56 | Outpatient (REF) | payer MEDICARE, SELFPAY ==
--- OUTSIDE RECORDS SUMMARY | 2024-05-10 12:58 | XMS_ITS | Clinical Summary ---
Author Organization [facility] Address [address] [place] [address] Care Team Providers Care Furnace Attendant Name Role Phone Unavailable Primary Care Provider Unavailabl e Social History Tobacco Use Types Packs/Day Years Used Date Smoking Tobacco: Never Assessed Sex and Gender Information Value Date Recorded Sex Assigned at Not on file Legal Sex Male 17:32 EST Gender Identity Not on file Sexual Orientation Not on file Plan of Treatment Health Maintenance Due Date Last Done Comments Hepatitis C Screen 1945 Fall Risk Screening 2010 RSV Immunization ( o r 60+ Years) (1 - 1-dose 75+ series) 02/23/2020 COVID-19 Vaccine ( season) 2024
--- OUTSIDE RECORDS SUMMARY | 2024-05-10 12:58 | XMS_ITS | Encounter Summary ---
Author Organization [facility] [place] [address] Care Team Providers Care Fish Roe Technician Name Role Phone Unavailable Primary Care Provider Unavailabl e Encounter Details Date Type Department Care Team (Latest Contact Info) Description 12/24/2021 11:05 AM EDT Laboratory Appointment Lab [address] [place] [address] Prostate cancer screening Social History Tobacco Use [...] Antigen (Ultrasensitive) 0.92 0.00 - 4.00 ng/mL [facility] Comment: PLEASE NOTE: The above reference interval is intended for healthy males with an intact prostate. Values within this reference interval may indicate recurrence in men who have undergone radical prostatectomy. This result was generated using a Kristine Geo immunoassay. ??Results obtained from other methods or manufacturers cannot be used interchangeably with this method. Prostate Specific Antigen, Free 0.5 ng/mL [facility] Comment: This result was generated using a Kristine Geo immunoassay. ??Results obtained from other methods or manufacturers cannot be used interchangeably with this method. PSA % Free Not Calculated % [facility] Comment: The percent free PSA was not calculated for this sample as the total PSA value was not in the range of 4-10 ng/mL. ??The utility of the percent free PSA in the setting of total PSA values below 4 or above 10 ng/mL has not been evaluated. Probability of finding PEDIATRIC RN on needle biopsy by age in years: [...] Becky Faustin APRN CHEMISTRY ORDER WINSOME [facility] [place] [address] documented in this encounter Visit Diagnoses Diagnosis Prostate cancer screening Special screening for malignant neoplasm of prostate documented in this encounter
--- OUTSIDE RECORDS SUMMARY | 2024-05-10 12:58 | XMS_ITS | Clinical Summary ---
Author Organization [facility] Address [facility] [place] [address] Care Team Providers Care Book Retailer Name Role Phone Unavailable Primary Care Provider [...] 1963 Tetanus/Diphtheria/Pertussis Vaccines (1 - Tdap) 02/22 Pneumoccocal Vaccine: 65+ (1 of 1 - PCV) 1995 Zoster vaccine (1 of 2) 1995 Advance Directive 02/23/2000 RSV Vaccine (1 - 1-dose 75+ series) 02/23/2020 Covid-19 Vaccine (2023-25 season) 2024 Influenza (Flu) vaccine (1 o f 1 - Influenza standard series) 01/14/2024
--- OUTSIDE RECORDS SUMMARY | 2024-05-10 12:58 | XMS_ITS | Referral Summary ---
Author Organization [facility] Address [address] [place] [address] Care Team Providers Care Motorized Squad Sergeant Name Role Phone Unavailable Primary Care Provider Unavailabl e Social History Tobacco Use Types Packs/Day Years Used Date Smoking Tobacco: Never Assessed Sex and Gender Information Value Date Recorded Sex Assigned at Not on file Legal Sex Male 17:32 EST Gender Identity Not on file Sexual Orientation Not on file Plan of Treatment Not on file
--- OUTSIDE RECORDS SUMMARY | 2024-05-10 12:58 | XMS_ITS ---
Author Organization Unknown ALLERGIES AND ADVERSE REACTIONS No information ASSESSMENT No information CHIEF COMPLAINT No information MEDICATIONS No information OBJECTIVE DATA No information PHYSICAL EXAMINATION No information TREATMENT PLAN Planned Care Start Date Provider Encounter for Check-up [phone] PROBLEMS No information RESULTS No information REVIEW OF SYSTEMS No information SUBJECTIVE DATA No information VITAL SIGNS No information
--- OUTSIDE RECORDS SUMMARY | 2024-05-10 12:58 | XMS_ITS | Encounter Summary ---
Author Organization [facility] Address [address] [place] [address] Care Team Providers Care Firmware Manager Name Role Phone Unavailable Primary Care Provider Unavailabl e Encounter Details Date Type Department Care Team (Late st Contact Info) Description 01/09/2024 Lab Requisition [facility] Pathology & Laboratory Medicine - [address] [address] Outr Resulting Lab, Provider Social History Tobacco [...] PSA 0.8 <=6.5 ng/mL 01/09/2024 19:24 EDT [facility] Blood VENOUS BLOOD / Unknown 01/08/2024 11:30 EDT 01/09/2024 17:53 EDT Narrative [facility] - 01/09/2024 19:24 EDT NOTE: Serum PSA concentration should not be interpreted as absolute evidence for the presence or absence of malignant disease. Assayed on Siemens ADVIA Centaur XPT using chemiluminescent technology.??Values obtained by using different assay methods cannot be used interchangeably. us Provider Outr Resulting Lab CHEMISTRY & BLOOD GA S ORDERABLES Final Result [facility] [address] [place] [address] documented in this encounter Visit Diagnoses Not on filedocumented in this encounter
--- OUTSIDE RECORDS SUMMARY | 2024-05-10 12:58 | XMS_ITS | Encounter Summary ---
[place] [address] Care Team Providers Care Special Education Curriculum Specialist Name Role Phone Unavailable Primary Care Provider Unavailabl e Reason for Visit * Consultation (Routine) - Closed Specialty Diagnoses / Procedures Referred By Contcaty t Referred To Contact Urology Diagnoses PERSISTENT NOCTURIA FOR SEVERAL YEARS Corazon Narayan APRN [address] [place] [address] [facility] [place] [address] Referral ID Status Reason Start Date Expiration Date V isits Requested Visits Authorized [id number] Closed Consult, Test & Treat Connection Center PCP Updated and/or Approved 02/10/2021 02/10/2022 6 6 Encounter Details Date Type Department Care Team (Late st Contact Info) Description 12/24/2021 10:00 AM EDT [place] [address] Becky Walker APRN Prostate cancer screening; OAB (overactive bladder) Social [...] Walker APRN - 12/24/2021 10:[address] 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 He would like screening today. GENERAL HEALTH: excellent ROS: Constitutional: Denies fever, chills, weight loss/gain Eyes: Denies acute vision change ENT: Denies sinus congestion, recent URI Pulmonary: Denies asthma, cough, recent pneumonia, SOB Cardiovascular: Denies chest pain, arrhythmia, MD GI:Denies GI bleed, GERD, constipation or diarrhea [...] only.2 drinks per day before dinner. 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 Becky Faustin APRN [facility] [phone] documented in this encounter Plan of Treatment Not on file documented as of this encounter Results * PSA (Ultrasensitive), total and free (12/24/2021 11:14 AM EDT) Prostate Specific Antigen (Ultrasensitive) 0.92 0.00 - 4.00 ng/mL [facility] Comment: PLEASE NOTE: The above reference interval is intended for healthy males with an intact prostate. Values within this reference interval may indicate recurrence in men who have undergone radical prostatectomy. This result was generated using a Kickplay Geo immunoassay. ??Results obtained from other methods or manufacturers cannot be used interchangeably with this method. Prostate Specific Antigen, Free 0.5 ng/mL [facility] Comment: This result was generated using a Kristine Geo immunoassay. ??Results obtained from other methods or manufacturers cannot be used interchangeably with this method. PSA % Free Not Calculated % [facility] Comment: The percent free PSA was not calculated for this sample as the total PSA value was not in the range of 4-10 ng/mL. ??The utility of the percent free PSA in the setting of total PSA values below 4 or above 10 ng/mL has not been evaluated. Probability of finding MEDICAL IMAGING DIRECTOR on needle biopsy by age in years: % fPSA ? 50-59yrs ? 60-69yrs ? >=70yrs <=10 ? 49.2 ? 57.5 ? 64.5 11-18 ?26.9 ? 33.9 ? 40.8 19-25 ?18.2 ? 23.9 ? 29.7 >25 ? 9.1 ? 12.2 ? 15.8 This result was generated using a Kickplay Geo immunoassay. ??Results obtained from other methods or manufacturers cannot be used interchangeably with this method. Blood 12/24/2021 11:1 4 AM EDT 12/24/2021 11:24 AM EDT Narrative Resulting Agency Comment Spec In Lab Becky Faustin APRN CHEMISTRY ORDER WINSOME [facility] [place] [address] documented in this encounter Visit Diagnoses Diagnosis Prostate cancer screening Special screening for malignant neoplasm of prostate OAB (overactive bladder) Hypertonicity of bladder documented in this encounter
--- OUTSIDE RECORDS SUMMARY | 2024-05-10 12:58 | XMS_ITS | Encounter Summary ---
Author Organization [facility] Address [facility] [place] [address] Care Team Providers Care Prn Physical Therapist Name Role Phone Unavailable Primary Care Provider Unavailabl e Encounter Details Date Type Department Care Team (Latest Contact Info) Description 03/01/2022 8:20 AM EDT TH Visit (TeleHealth) [place] [address] Becky Walker APRN PATIENT NOT SEEN Social History Tobacco Use Types Packs/Day Years Used Date Smoking Tobacco: Former Cigarettes Q uit: 1970 Smokeless Tobacco: Never Sex and Gender Information Value Date Recorded Sex Assigned at Not on file Gender Identity Not on file Sexual Orientation Not on file documented as of this encounter Progress Notes * Becky Walker APRN - 03/01/2022 8:20 AM EDT [facility] SECTION OF UROLOGY OUT PATIENT FOLLOW [...] consent to receiving health care services at [facility] through telemedicine. We discussed the opportunities and limitations of delivering health care services through telemedicine. I told the patient that the telemedicine service is being delivered over a secure connection, except in the event of emergency conditions when such requirements may be waived. [facility] is available for patient's review in [facility] patient portal, [employer]-. 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 Smoked 50-60 years ago, smoked for a few years, socially only.2 drinks per day before dinner. 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 documented in this encounter Plan of Treatment Not on file documented as of this encounter Visit Diagnoses Diagnosis DH PATIENT NOT SEEN documented in this encounter
--- OUTSIDE RECORDS SUMMARY | 2024-05-10 12:58 | XMS_ITS | Encounter Summary ---
[place] [address] Care Team Providers Care Assembler Dielectric Heater Name Role Phone Unavailable Primary Care Provider Unavailabl e Reason for Referral * Consultation (Routine) - Denied Specialty Diagnoses / Procedures Referred By Contac t Referred To Contact [facility] Diagnoses Other cervical disc degeneration, unspecified cervical region Gail Cleaning PA [address] [address] [facility] [place] [address] Referral ID Status Reason Start Date Expiration Date V isits Requested Visits Authorized [id number] Denied Consult, Test & Treat PCP Updated and/or Approved 06/07/2023 06/06/2024 1 0 Encounter Details Date Type Department Care Team (Late st Contact Info) Description 06/07/2023 Transcribe Orders eD Incoming Referrals [phone] Gail Cleaning PA [address] [place] [address] [phone] Other cervical disc degeneration, unspecified cervical region [...]
[2024-05-13 16:29] LABS: B.holmesii DNA Not Detected (NotDetected); B.parapertussis DNA Not Detected (NotDetected); B.pertussis DNA Not Detected (NotDetected)
[2024-05-20 15:13] LABS: B.parapertussis NOT recovered; B.pertussis NOT recovered
== END 2024-05-10 12:57 | disposition home or self-care (01) ==
LOC: NCHCN 12:56
PROVIDERS: PCP Family Medicine; Visit Provider Nurse Practitioner Family
DX: J06.9 Acute upper respiratory infection, unspecified (principal)
CPT/HCPCS: 87798

== ENCOUNTER 2024-08-23 16:29 | Emergency (ER) | payer MEDICARE, SELFPAY ==
--- NOTE | 2024-08-23 16:30 | RT.EKG_ITS ---
APPROVED REPORT Exam: Resting ECG Reason for Exam: TIA? Patient Location: E HR:78 bpm ECG Measurements Heart Rate 78 AXIS HI 136 P 75 QRSd 107 QRS 74 QT 385 T -5 QTc 439 Conclusion Sinus arrhythmia [address] change no stemi
--- NOTE | 2024-08-23 16:30 | DI.CT_ITS ---
Exam(s) CT HEAD - STROKE PROTOCOL EXAM: CT HEAD - STROKE PROTOCOL CLINICAL HISTORY: ataxia. TECHNIQUE: Imaging Protocol: Axial computed tomography images with coronal and sagittal reformatted images were created and reviewed COMPARISON: MR MR BRAIN WO from 02/09/2024 FINDINGS: Ventricles and Extra axial spaces: Normal in size and morphology for the patient's age. Hemorrhage: None. Cerebral parenchyma: Areas of decreased attenuation in the white matter consistent with chronic micro vascular ischemic disease. No mass effect is identified. No definite areas to suggest an acute terr itorial infarct are seen at this time. Midline shift: None. Brainstem/Cerebellum: Normal. Calvarium: Normal. Visualized Paranasal sinuses/Mastoids: Clear. Soft Tissues: Unremarkable. IMPRESSION: 1. No acute intracranial process. 2. Age-related cerebral atrophy and chronic microvascular ischemic changes. Follow-up as clinically appropriate. RADIATION DOSE DELIVERED: 902.18mGy.cm Total DLP DATA REPOSITORY: All CT scans at this facility are submitted to the National Radiology Data Registry (NRDR) Dose Index Registry (DIR) with the [employer] (ACR). RADIATION OPTIMIZATION: All CT scans at this facility use at least one of these dose optimization te chniques: automated exposure control; mA and/or kV adjustment per patient size (includes targeted exa ms where dose is matched to clinical indication); or iterative reconstruction.
[2024-08-23 16:33] VITALS: BP 157/64; PULSE 78; RESP 16; TEMP 36.2; O2SAT 98
[2024-08-23 16:58] LABS: Abs Immature Grans 0.02 10^3/uL (0.0-0.06); Absolute Basophil Count 0.02 10^3/uL (0.0-0.2); Absolute Eosinophil Count 0.06 10^3/uL (0.0-0.7); Absolute Lymphocyte Count 0.84 10^3/uL (1.2-3.4); Absolute Monocyte Count 0.58 10^3/uL (0.1-0.8); Absolute Neutrophil Count 5.37 10^3/uL (1.2-6.7); Basophils % 0.3 %; Eosinophils % 0.9 %; HCT 40.8 % (40.0-50.0); HGB 13.4 g/dL (13.5-17.5); Immature Grans % 0.3 %; Lymphocytes % 12.2 %; MCHC 32.8 % (32.0-36.0); MCV 104 fL (80-95); MPV 10.6 fL (8.0-11.0); Monocytes % 8.4 %; Neutrophils % 77.9 %; Platelet Count 194 10^3/uL (130-400); RBC 3.94 10^6/uL (4.36-5.78); RDW 13.4 % (11.8-14.1); RDW-SD 51.9 fL; WBC 6.89 10^3/uL (4.4-10.8)
[2024-08-23 17:13] LABS: Prothrombin Time 9.7 sec (9.1-11.1)
[2024-08-23 17:22] VITALS: RESP 16
[2024-08-23 17:30] LABS: ALT 31 U/L (16-63); AST 25 U/L (15-37); Albumin 3.4 g/dL (3.4-5.0); Alkaline Phosphatase 78 U/L (46-116); Anion Gap 8.2 mmol/L (3-11); BUN 21 mg/dL (7-18); Bilirubin, Total 0.2 mg/dL (0.2-1.0); CO2 25.8 mmol/L (21.0-32.0); CREATININE 0.8 mg/dL (0.70-1.30); Calcium 9.1 mg/dL (8.5-10.1); Chloride 108 mmol/L (98-107); Estimated GFR 90.02 (mL/min/1.73m2); Glucose 108 mg/dL (74-106); Magnesium 2.1 mg/dL (1.8-2.4); Potassium 4.3 mmol/L (3.5-5.1); Sodium 142 mmol/L (136-145); TSH 1.68 uIU/mL (0.36-3.74); Total Protein 6.5 g/dL (6.4-8.2)
[2024-08-23 17:32] LABS: ETHANOL BLOOD < 3.0 mg/dL (<10)
[2024-08-23 17:58] LABS: Bilirubin Negative (Negative); Blood Negative (Negative); Clarity Clear (Clear); Glucose Negative (Negative); Ketones Trace mg/dL (Negative); Leukocyte Esterase Negative (Negative); Nitrite Negative (Negative); Urobilinogen 0.2 mg/dL (Up to 0.2); pH 7.5 (5-8)
[2024-08-23 18:09] LABS: Folate 8.6 ng/mL (8.6-20.0); Vitamin B12 760 pg/mL (193-986)
[2024-08-23 18:14] LABS: *AMPHETAMINES SCREEN URINE Negative (Negative); *BARBITURATES SCREEN URINE Negative (Negative); *BENZODIAZEPINES SCREEN URINE Negative (Negative); Cannabinoids THC Positive (Negative); Cocaine Screen,Urine Negative (Negative); METHADONE URINE SCREEN Negative (Negative); OPIATES URINE SCREEN Negative (Negative)
[2024-08-23 18:15] LABS: Tricyclic Antidepressants Negative (Negative)
[2024-08-23 18:31] VITALS: BP 163/97; PULSE 67; PULSE 78; RESP 15
[2024-08-23 19:48] VITALS: BP 209/88; PULSE 83; RESP 16; TEMP 36.5; O2SAT 99
--- NOTE | 2024-08-23 21:14 | ED.GENADUL_ITS ---
Discharge Plan Disposition Patient Disposition: Home Condition: Stable Discharge Details Clinical Impression: Ataxia Primary Care Provider: Duarte Torrez ED Provider: Merari Kovacs Home Meds and New Rx's Prescriptions: No Action Anoro Ellipta 62.5-25 mcg/actuation blister with device 1 inh inhalation DAILY guaifenesin [Mucus Relief ER] 600 mg tablet extended release 12hr 600 mg PO BID acetaminophen 325 mg tablet 650 mg PO Q6H PRN albuterol sulfate 90 mcg/actuation HFA aerosol inhaler See Rx Instructions inhalation Q6H PRN Rx Instructions: -2 puffs inhaled every 6 hours PRN; montelukast 10 mg tablet 10 mg PO ONCE Patient Comments: TAKE ONE TABLET BY MOUTH EVERY EVENING Lotrexone 4.5 mg capsule 4.5 mg PO DAILY Discharge Instructions Additional Instructions: An outpatient MRI has been ordered. Please contact them Monday to schedule this. You have also been referred to outpatient neurology for close follow-up here. Return to the emergency department with any falls or worsening symptoms. Please use your dog and utilize significant caution with ambulation and avoid any activities that may result in injury if you were to fall Discharge Orders Other Ambulatory Orders: MR brain wo/w (Routine) Timeframe: 10 Day Facility: [facility] - Location: DIAGNOSTIC IMAGING Ordered By: Merari Kovacs [facility] General Date/Time Provider Initiated Documentation: 08/23/24 16:41 . Limitations to Documentation: no limitations . Information obtained by: patient, family and old records reviewed . HPI Narrative: 79-year-old gentleman with past medical history of pulmonary hypertension, asthma presents for evaluation of gait difficulty. He reports that over the last few months he has been having difficulty with walking. He states that this is caused him significant balance issues. Yesterday he states that he was using a chainsaw to cut wood when he lost his balance and fell. He did not sustain any injuries during the fall. He states that his walking is gotten so bad that he has gotten a service animal to help him with his balance and stability. He reports that occasionally he has some difficulty with word finding and feels like his brain is speaking a different language. He has not noticed any numbness tingling or weakness. Related Data Home Medications ?Medication ?Instructions ?Recorded ?Confirmed acetaminophen 325 mg tablet 650 mg PO Q6H PRN 04/21/21 08/23/24 albuterol sulfate 90 mcg/actuation See Rx Instructions inhalation Q6H 01/07/22 08/23/24 aerosol inhaler PRN guaifenesin 600 mg tablet, 600 mg PO BID 06/13/22 08/23/24 extended release 12 hr (Mucus Relief ER) umeclidinium 62.5 mcg-vilanterol 1 inh inhalation DAILY 06/13/22 08/23/24 25 mcg/actuation powdr for inhalation (Anoro Ellipta) montelukast 10 mg tablet 10 mg PO ONCE 02/09/24 08/23/24 naltrexone 4.5 mg capsule 4.5 mg PO DAILY 08/23/24 08/23/24 (Lotrexone) Allergies Allergy/AdvReac Type Severity Reaction Status Date / Time dog dander Allergy Unknown Unknown Verified 08/23/24 16:41 penicillin V Allergy Unknown Verified 08/23/24 16:41 secobarbital (From [place]) Allergy Unknown Verified 08/23/24 16:41 Molds and Smuts Allergy Unknown Uncoded 08/23/24 16:41 General Stated Complaint: CVA/TIA TRAVIS: 2 Exam Narrative Exam Narrative: Review of Systems: All systems reviewed & are unremarkable except as noted in HPI and below Well-developed, no acute distress NCAT PERRL, normal conjunctiva no nystagmus No facial asymmetry Speech is clear RRR Unlabored respiratory effort clear bilaterally Nondistended abdomen Light touch gait + Romberg Course Vital Signs Vital signs: Vital Signs Temperature 36.2 C L 08/23/24 16:33 Pulse 78 08/23/24 16:33 Respiratory Rate 16 08/23/24 16:33 Blood Pressure 157/64 H 08/23/24 16:33 Pulse Oximetry 98 08/23/24 16:33 Temperature 36.5 C 08/23/24 19:48 Temperature Source Oral 08/23/24 16:33 Pulse 83 08/23/24 19:48 Pulse 78 08/23/24 18:31 Respiratory Rate 16 08/23/24 19:48 Respiratory Effort Normal 08/23/24 17:22 Respiratory Depth Normal 08/23/24 17:22 Respiratory Pattern Normal 08/23/24 17:22 Blood Pressure 209/88 H 08/23/24 19:48 Blood Pressure Mean 119 08/23/24 18:31 Blood Pressure Position Sitting 08/23/24 16:33 Pulse Oximetry 99 08/23/24 19:48 Oxygen Delivery Method Room Air 08/23/24 16:33 Oxygen Flow Rate 0 08/23/24 16:33 Pain Level 0 08/23/24 16:33 Lab/Test Results Lab/Test Results: Laboratory Tests Range/Units 08/23/24 08/23/24 16:50 17:50 WBC (4.4-10.8) 10^3/uL 6.89 RBC (4.36-5.78) 10^6/uL 3.94 L Hgb (13.5-17.5) g/dL 13.4 L Hct (40.0-50.0) % 40.8 MCV (80-95) fL 104 H MCH (27.0-33.0) pg 34.0 H MCHC (32.0-36.0) % 32.8 RDW (11.8-14.1) % 13.4 Plt Count (130-400) 10^3/uL 194 MPV (8.0-11.0) fL 10.6 Immature Gran % % 0.3 Neutrophils % % 77.9 Lymphocytes % % 12.2 Monocytes % % 8.4 Eosinophils % % 0.9 Basophils % % 0.3 Nucleated RBC % (0.0-0.3) % 0.0 Absolute Neutrophils (1.2-6.7) 10^3/uL 5.37 Absolute Lymphocytes (1.2-3.4) 10^3/uL 0.84 L Absolute Monocytes (0.1-0.8) 10^3/uL 0.58 Absolute Eosinophils (0.0-0.7) 10^3/uL 0.06 Absolute Basophils (0.0-0.2) 10^3/uL 0.02 PT (9.1-11.1) sec 9.7 INR (0.9-1.1) 1.0 Sodium (136-145) mmol/L 142 Potassium (3.5-5.1) mmol/L 4.3 Chloride (98-107) mmol/L 108 H Carbon Dioxide (21.0-32.0) mmol/L 25.8 Anion Gap (3-11) mmol/L 8.2 BUN (7-18) mg/dL 21 H Creatinine (0.70-1.30) mg/dL 0.8 Est GFR (CKD-EPI 2020) (mL/min/1.73m2) 90.02 Glucose (74-106) mg/dL 108 H Calcium (8.5-10.1) mg/dL 9.1 Magnesium (1.8-2.4) mg/dL 2.1 Total Bilirubin (0.2-1.0) mg/dL 0.2 AST (15-37) U/L 25 ALT (16-63) U/L 31 Alkaline Phosphatase (46-116) U/L 78 Total Protein (6.4-8.2) g/dL 6.5 Albumin (3.4-5.0) g/dL 3.4 Vitamin B12 (193-986) pg/mL 760 Folate (8.6-20.0) ng/mL 8.6 TSH (0.36-3.74) uIU/mL 1.68 Urine Color (Yellow) Yellow Urine Clarity (Clear) Clear Urine pH (5-8) 7.5 Ur Specific [place] (1.005-1.025) 1.020 Urine Protein (Neg-Trace) mg/dL Negative Urine Ketones (Negative) mg/dL Trace H Urine Blood (Negative) Negative Urine Nitrite (Negative) Negative Urine Bilirubin (Negative) Negative Urine Urobilinogen (Up to 0.2) mg/dL 0.2 Ur Leukocyte Esterase (Negative) Negative Urine Glucose (Negative) mg/dL Negative Urine Opiates Screen (Negative) Negative Urine Methadone Screen (Negative) Negative Ur Barbiturates Screen (Negative) Negative Ur Tricyclics Screen (Negative) Negative Ur Amphetamines Screen (Negative) Negative U Benzodiazepines Scrn (Negative) Negative Urine Cocaine Screen (Negative) Negative Ur THC Screen (Negative) Positive A Ethyl Alcohol (<10) mg/dL < 3.0 Medical Decision Making Emergent evaluation of gait difficulty. Patient stated initially that he thought maybe he had a TIA yesterday that caused his fall though he does not have any signs or symptoms consistent with an acute stroke. Of note the patient was seen in the emergency department a few months ago and at that time presented with dizziness. He had an MRI of his brain that did not demonstrate an acute CVA the patient has followed with his primary care provider and has been referred to neurology and will see them next month. Over his gait problems have worsened requiring now a dog which is at bedside. The patient does not meet cr iteria for an acute CVA. Initial differential includes neuro movement disorder, alcohol related disorder as the patient states that he does drink at least 1 drink daily. Encephalopathy also considered. Unable to get an MRI at this time, so I will obtain a head CT to evaluate for any acute intracranial abnormality. Lab work reviewed. There is no leukocytosis or anemia. His electrolytes are w ithout significant derangement. LFTs within normal limits. Vitamin B12 folate and TSH are all unremarkable as well. Urinalysis does not show an infection. His tox screen is only positive for THC. I have ordered a teleneuro consult to help with disposition of this patient. They evaluated the patient and no clear etiology was identified for his symptoms. They do recommend possible admission for MRI with and without contrast and also recommend sending Lyme panel. This has been done. I discussed hospitalization with the patient for MRI testing as well as for PT OT evaluation, however given the constraints of our facility, we do not have MRI capability over the weekend the patient will be here until Monday. The patient does not want to stay in the hospital and is requesting discharge home. Given that minimal services would be available to the patient over the weekend, I feel that this is a reasonable disposition for him. His is at bedside and also comes follow-up comfortable with this. An outpatient MRI with and without contrast has been ordered as well as an emergent neurology follow-up appointment referral has been sent. Strict return precautions advised. Discussed continued safe ambulation techniques. Return precautions discussed. Quality:SDOH Health Related Social Needs: No Data to Display PFSH All Active Problems (Updated 08/23/24 @ 19:38 by Merari Kovacs MD) Ataxia (Acute) Asthma-COPD overlap syndrome (Acute) Sleep apnea (Acute) Pulmonary hypertension (Acute) Pulmonary nodule (Acute) Bronchiectasis (Acute) Asthma, mild persistent (Acute) Tongue leukoplakia (Acute) Medical History Gastritis determined by endoscopy Schatzki's ring GERD without esophagitis Erectile dysfunction Benign prostate hyperplasia Allergic rhinitis Chronic bronchitis Chronic obstructive pulmonary disease IBS (irritable bowel syndrome) Nodule of upper lobe of left lung Spinal stenosis at L4-L5 level Osteoarthritis Elevated BP without diagnosis of hypertension Depression Anxiety disorder Pulmonary fibrosis Spondylolisthesis of lumbar region Spinal stenosis, lumbar region with neurogenic claudication Surgical History S/P tonsillectomy and adenoidectomy History of endoscopy S/P lumbar fusion Family History Mother Heart disease Heart block Social History Smoking/Tobacco Use Status: Former Tobacco Use tobacco type: cigarettes Smoking risk assessment performed?: Yes Alcohol Intake: current Alcohol Intake frequency: 0-2 drinks per day Drug use: Rarely Substance use type: marijuana Housing: house Do you feel safe at home: Yes Do you feel safe in your relationship?: Yes PAWSS Have you Been Recently Intoxicated or Drunk Within the Last 30 days?: No Have you Ever Experienced Previous Episodes of Alcohol Withdrawal?: No Have you ever Experienced Withdrawal Seizures?: No Have you ever Experienced Delirium Tremens(DT)s?: No Have you ever undergone Alcohol Rehabilitation Treatment (i.e, inpt ot outpatient treatment programs)?: No Have you ever Experienced Blackouts?: No Have you ever Combined Alcohol with other Downers within the last 90 days?: No Have you ever Combined Alcohol with any other Substance of Abuse during the last 90 days?: No Result: 0
[2024-08-26 11:27] LABS: Lyme Ab w Rflx to Lyme Confirm Negative (Negative)
== END 2024-08-23 19:48 | disposition home or self-care (01) ==
PROVIDERS: Emergency Provider Emergency Medicine; PCP Family Medicine
DX: R27.0 Ataxia, unspecified (principal); R42 Dizziness and giddiness; R35.89 Other polyuria; Z98.1 Arthrodesis status; I27.20 Pulmonary hypertension, unspecified; Z87.891 Personal history of nicotine dependence
CPT/HCPCS: 36415; 80053; 80307; 93005; 99285; 70450; 80320; 81003; 82607; 82746; 83735; 84443; 85025; 85610; 86618; 93010; 99284

== ENCOUNTER 2024-08-27 09:39 | Outpatient (CLI) | payer MEDICARE, SELFPAY ==
--- NOTE | 2024-08-27 | DI.MRI_ITS ---
Exam(s) MR BRAIN WO/W EXAM: MR BRAIN WO/W CLINICAL HISTORY: Ataxia, R27.0 TECHNIQUE: Multiplanar multisequence MRI of the brain was performed. Both noninfused and contrast i nfused sequences were performed. IV Contrast injected was 15 cc Dotarem. COMPARISON: MR MR BRAIN WO from 02/09/[address] HEAD - STROKE PROTOCOL from 08/23/2024 FINDINGS: CEREBRAL PARENCHYMA: No evidence of intracranial hemorrhage, new mass effect nor shift of midline str ucture. No extraaxial fluid collections. Ventricles are unchanged in size. Cory cisterna magna is again no nelda There is no new significant focal signal abnormality in the cerebellar hemispheres nor within the jaimee s, midbrain, and thalami. There is again noted bilateral periventricular signal abnormality consistent chronic small vessel dis ease which appears unchanged from the prior MRI study of January 2024. DWI: There are no areas of restricted diffusion to suggest acute ischemic event. SWI: There are no microhemorrhages evident. There are no ring enhancing lesions in the brain. There is no abnormal meningeal enhancement. PITUITARY GLAND: No mass nor parasellar abnormality. No obvious abnormality in the cavernous sinuses. FLOW VOIDS: The expected flow void are noted. No evidence of obvious aneurysm nor obvious vascular ma lformation. No evidence of venous sinus thrombosis. PARANASAL SINUSES: The visualized paranasal sinuses appear unremarkable. ORBITS: No obvious abnormal findings. Previous bilateral cataract surgery again noted. IMPRESSION: 1. No significant acute intracranial findings on this MRI scan of the brain. 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 No abnormal enhancing intracranial findings. There are no ring enhancing lesions in the brain and there is no abnormal meningeal enhancement. DATA REPOSITORY:
[2024-08-27] MEDS: Gadoterate meglumine 20 ML SYRINGE 15 ML IVP (15:40)
[2024-08-27] MEDS: Normal Saline Flush 10 ML SYR IVP (15:41)
== END 2024-08-27 09:59 ==
LOC: DI 09:47
PROVIDERS: PCP Family Medicine; Visit Provider Family Medicine
DX: R27.0 Ataxia, unspecified (principal)
CPT/HCPCS: 70553

== ENCOUNTER 2024-09-05 11:08 | Outpatient (CLI) | payer MEDICARE, SELFPAY ==
[2024-09-05 17:18] LABS: Vitamin B12 653 pg/mL (193-986)
[2024-09-09 11:18] LABS: CMV IgG Antibody Negative (See Note); Syphilis Serology (RPR) Negative (Negative)
[2024-09-09 15:49] LABS: Anaplasma phagocytophilum Negative (Negative); B. miyamotoi PCR Negative (Negative); Babesia divergens/MO-1 Negative (Negative); Babesia duncani Negative (Negative); Babesia microti Negative (Negative); Ehrlichia chaffeensis Negative (Negative); Ehrlichia ewingii/canis Negative (Negative); Ehrlichia muris eauclairensis Negative (Negative)
[2024-09-09 17:06] LABS: EBV DNA Detect/Quant, P Undetected IU/mL (Undetected)
== END 2024-09-05 11:09 | disposition home or self-care (01) ==
LOC: LBO 11:08
PROVIDERS: PCP Family Medicine; Visit Provider Acupuncturist
DX: R41.81 Age-related cognitive decline (principal); R26.0 Ataxic gait
CPT/HCPCS: 36415; 82175; 83825; 87798; 87799; 82607; 82746; 83655; 86592; 86644

== ENCOUNTER → 2024-11-13 12:50 | Outpatient (BNVA) | payer MEDICARE, SELFPAY | PROVIDERS: PCP Family Medicine; Referring Provider Emergency Medicine; Visit Provider Psychiatry & Neurology Neurology | DX: R27.0 Ataxia, unspecified (principal); R47.1 Dysarthria and anarthria; R41.3 Other amnesia; G62.9 Polyneuropathy, unspecified; M48.02 Spinal stenosis, cervical region; M48.061 Spinal stenosis, lumbar region without neurogenic claudication | CPT/HCPCS: 99215; G2212 ==

== ENCOUNTER 2025-03-26 14:58 | Outpatient (CLI) | payer MEDICARE, SELFPAY ==
[2025-03-26 16:23] LABS: Magnesium 2.1 mg/dL (1.6-2.6)
[2025-03-26 17:31] LABS: Hemoglobin A1C 5.4 % (<5.7)
[2025-03-26 22:10] LABS: CRP, High Sensitivity 5.52 mg/L (See Note)
[2025-03-27 13:16] LABS: Albumin 64.0 % (55.8-66.1); Albumin g/dL 4.2 g/dL (3.6-5.2); Alpha 1 g/dL 0.30 g/dL (0.15-0.40); Alpha 2 g/dL 0.70 g/dL (0.50-1.00); Beta g/dL 0.60 g/dL (0.60-1.20); Gamma g/dL 0.70 g/dL (0.60-1.60); Total Protein 6.5 g/dL (6.3-8.2)
[2025-03-28 12:05] LABS: Vitamin E, Serum 16.9 mg/L (5.5 - 17.0)
[2025-04-01 12:04] LABS: Dehydroepiandrosterone (DHEA) 0.9 ng/mL (<5.0)
[2025-04-03 23:27] LABS: Testosterone, Free 42.2 pg/mL (30.0-135.0)
== END 2025-03-26 14:59 | disposition home or self-care (01) ==
LOC: LBO 15:04
PROVIDERS: Psychiatry & Neurology Neurology; PCP Family Medicine; Visit Provider Family Medicine
DX: G30.9 Alzheimer's disease, unspecified (principal); F02.A0 Dementia in other diseases classified elsewhere, mild, without behavioral disturbance, psychotic disturbance, mood disturbance, and anxiety; G62.9 Polyneuropathy, unspecified
CPT/HCPCS: 36415; 80061; 81401; 82533; 83090; 84402; 84403; 86141; 82626; 82652; 82670; 82728; 83036; 83735; 84144; 84165; 84446